=== PATIENT | female | born 1955 ===

== ENCOUNTER 2017-09-10 15:54 | Inpatient (IN) | payer MEDICAID ==
[2017-09-10 15:54] VITALS: BMI 24.5
[2017-09-10] MEDS ORDERED: Nitroglycerin 2% Ointment Foilpak UD TOP STA (16:19)
[2017-09-10] MEDS ORDERED: Alum-Mag Hydrox-Simethicone Susp (30 mL) PO STA (16:22)
[2017-09-10] MEDS ORDERED: Nitroglycerin 2% Ointment Foilpak UD TOP ONE (16:24)
[2017-09-10] MEDS ORDERED: Alum-Mag Hydrox-Simethicone Susp (30 mL) ONE (16:34)
--- NOTE | 2017-09-10 16:39 | ED PDOC ---
HPI: Chest Pain Time Seen by Provider: 09/10/17 16:10 Chief Complaint (Nursing): Chest Pain Chief Complaint (Provider): Chest pain History Per: Patient History/Exam Limitations: no limitations Onset/Duration Of Symptoms: Days (x2), Waxing/Waning Current Symptoms Are (Timing): Still Present Quality: Pressure Additional Complaint(s): 62 year old female, with past medical history of hypertension, thyroid disease, high cholesterol, anxiety, presented to ED with complaints of CP with onset of 2 days. Patient reports SOB, pain worsens when she lies down, intermittent leg swelling, and anxiety. 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 Denies fever, nausea, vomiting, abdominal pain, and back pain. PCP: Sandro Nix Past Medical History Reviewed: Historical Data, Nursing Documentation, Vital Signs Vital Signs: Last Vital Signs Temp 98.5 F 09/11/17 12:17 Pulse 60 09/11/17 12:46 Resp 16 09/11/17 12:17 BP 186/79 H 09/11/17 12:46 Pulse Ox 100 09/11/17 12:17 - Medical History PMH: Anxiety, Arthritis, Depression, Diverticulitis, Gastrointestinal Ulcer, Hiatal Hernia, HTN, Hypercholesterolemia, Hypothyroidism, Migraine Denies: Chronic Kidney Disease - Surgical History Other surgeries: Tubal ligation, bilateral rotator cuff surgery, right breast lumpectomy - Family History Family History: States: Hypertension - Social History Ex-Smoker (has not smoked in the last 12 months): No (Quit 17 years ago) Alcohol: None Drugs: Denies - Immunization History Hx Tetanus Toxoid Vaccination: No Hx Influenza Vaccination: No Hx Pneumococcal Vaccination: No - Home Medications Home Medications: Ambulatory Orders Medication Instructions Recorded Alprazolam [Xanax] 0.5 mg PO TID 12/16/16 Dicyclomine [Bentyl] 20 mg PO DAILY PRN 12/16/16 Metoprolol Tartrate 25 mg PO DAILY 12/16/16 Levothyroxine [Synthroid] 88 mcg PO DAILY 09/10/17 Zolpidem [Ambien] 10 mg PO DAILY 09/10/17 - Allergies Allergies/Adverse Reactions: Allergies Allergy/AdvReac Type Severity Reaction Status Date / Time diphenhydramine Allergy RASH Verified 09/11/17 02:01 [From Benadryl] esomeprazole [From Nexium] Allergy PAIN Verified 09/11/17 02:01 ibuprofen Allergy PAIN Verified 04/21/16 10:18 ketorolac tromethamine Allergy PAIN Verified 04/21/16 10:18 [From Toradol] oxycodone HCl [From Percocet] Allergy PAIN Verified 07/08/16 23:22 VINOD Risk Score for UA/NSTEMI - VINOD Risk Score Age > 64: NO 3 or more CAD Risk Factors: YES Known CAD (Stenosis greater than 50%): NO Aspirin use in past 7 days: NO Severe Angina: NO EKG ST changes greater than 0.5mm: NO Positive Cardiac Marker: NO VINOD Score: 1 Risk %: 5% Review of Systems ROS Statement: Except As Marked, All Systems Reviewed And Found Negative Constitutional: Negative for: Fever Respiratory: Positive for: Shortness of Breath. Negative for: Cough Gastrointestinal: Negative for: Nausea, Vomiting, Abdominal Pain Musculoskeletal: Negative for: Back Pain Physical Exam - Reviewed Nursing Documentation Reviewed: Yes Vital Signs Reviewed: Yes - Physical Exam Appears: Positive for: Non-toxic. Negative for: No Acute Distress (mild painful distress) Skin: Positive for: Warm, Dry Eye Exam: Positive for: EOMI, PERRL ENT: Negative for: Pharyngeal Erythema, Tonsillar Exudate Neck: Positive for: Painless ROM, Supple Cardiovascular/Chest: Positive for: Regular Rate, Rhythm. Negative for: Gallop , Murmur Respiratory: Positive for: Normal Breath Sounds. Negative for: Rales, Rhonchi, Wheezing, Respiratory Distress Gastrointestinal/Abdominal: Positive for: Soft. Negative for: Tenderness Back: Positive for: Vertebral Tenderness (lumbar), Muscle Spasm Extremity: Negative for: Pedal Edema Lymphatic: Negative for: Adenopathy Neurologic/Psych: Positive for: Alert. Negative for: Motor/Sensory Deficits - Laboratory Results Result Diagrams: 09/10/17 16:45 09/11/17 06:18 - ECG ECG: Positive for: Interpreted By Me, Viewed By Me ECG Rhythm: Positive for: Normal QRS, ST/T Changes (diffusely flattened t waves) Rate: 64 O2 Sat by Pulse Oximetry: 99 (RA) Pulse Ox Interpretation: Normal Medical Decision Making Medical Decision Making: Initial Impression: Chest pain, hospitalized for serial troponins secondary to cardiac risk factor, pending ER workup Differentials: anxiety, CHF, PE, costochondritis Initial Plan: Type and Screen Stat ECG CMP Magnesium Phosphorous Thryoid stimulation Troponin I ED urine dipstick CBC D Dimer Prothrombin Time X-Ray Aluminum hydroxide 30ml PO Nitroglycerin 2% 0.5 Top Stat Pepcid 20mg PO Ondansetron 4mg PO Pending ED workup 16:35 X-Ray FINDINGS: LUNGS: No active pulmonary disease. PLEURA: No significant pleural effusion identified. No pneumothorax apparent. CARDIOVASCULAR: No radiographic findings to suggest acute or significant cardiovascular disease. OSSEOUS STRUCTURES: No significant abnormalities. VISUALIZED UPPER ABDOMEN: Normal. OTHER FINDINGS: None. IMPRESSION: No active disease. No significant interval change compared to the prior examination(s). Labs demonstrate electrolyte derangements. Supplementation ordered. FLORA Dunbar and placed in observation. Scribe Attestation: Documented by Eddie Justin acting as a scribe for Fiona Castañeda MD. Provider Scribe Attestation: All medical record entries made by the Scribe were at my direction and personally dictated by me. I have reviewed the chart and agree that the record accurately reflects my personal performance of the history, physical exam, medical decision making, and the department course for this patient. I have also personally directed, reviewed, and agree with the discharge instructions and disposition. Disposition - Clinical Impression Clinical Impression: Chest pain - Disposition Disposition Time: 16:30 Condition: FAIR - Pt Status Changed To: Hospital Disposition Of: Observation - POA Present On Arrival: None
--- NOTE | 2017-09-10 16:58 | RAD ---
HISTORY: Chest pain COMPARISON: 07/08/2016 TECHNIQUE: Chest PA and lateral FINDINGS: LUNGS: No active pulmonary disease. PLEURA: No significant pleural effusion identified. No pneumothorax apparent. CARDIOVASCULAR: No radiographic findings to suggest acute or significant cardiovascular disease. OSSEOUS STRUCTURES: No significant abnormalities. VISUALIZED UPPER ABDOMEN: Normal. OTHER FINDINGS: None. IMPRESSION: No active disease. No significant interval change compared to the prior examination(s).
[2017-09-10 18:04] LABS: B-TYPE NATRIURETIC PEPTIDE 185 pg/ml (0-900)
[2017-09-10 18:04] LABS: BASO % 0.4 % (0.0-2.0); EOS % 0.4 % (0.0-4.0); LYMPH # 1.6 K/uL (1.0-4.3); LYMPH % 20.7 % (20.0-40.0); MEAN CORPUSCULAR HEMOGLOBIN 32.3 pg (27.0-31.0); MEAN CORPUSCULAR HGB CONC 33.3 g/dL (33.0-37.0); MEAN PLATELET VOLUME 7.3 fl (7.2-11.7); MONO # 0.5 K/uL (0.0-0.8); MONO % 6.2 % (0.0-10.0); NEUT # 5.5 K/uL (1.8-7.0); NEUT % 72.3 % (50.0-75.0); NRBC % 0.1 % (0.0-0.0); RBC 4.03 Mil/uL (3.80-5.20); RED CELL DISTRIBUTION WIDTH 14.4 % (11.5-14.5); WHITE BLOOD COUNT 7.7 K/uL (4.8-10.8)
[2017-09-10 18:10] LABS: ALB/GLOB RATIO 1.1 (1.0-2.1); ALBUMIN 4.7 g/dL (3.5-5.0); ALT/SGPT 34 U/L (9-52); AST/SGOT 23 U/L (14-36); BLOOD UREA NITROGEN 5 mg/dl (7-17); CALCIUM 9.7 mg/dL (8.4-10.2); GFR AFRICAN-AMERICAN > 60; GFR NON-AFRICAN AMERICAN > 60
[2017-09-10] MEDS ORDERED: Potassium & Sodium Phosphate PO STA (18:13)
[2017-09-10 18:16] LABS: INR 1.1 (0.9-1.2); PROTHROMBIN TIME 11.8 Seconds (9.8-13.1)
[2017-09-10 18:17] LABS: PARTIAL THROMBOPLASTIN TIME 28.1 Seconds (25.6-37.1)
[2017-09-11] MEDS ORDERED: Phenylephrine 0.5% Nasal Spray NAS ONE (01:39)
[2017-09-11 06:28] LABS: ALB/GLOB RATIO 1.1 (1.0-2.1); ALBUMIN 4.6 g/dL (3.5-5.0); ALT/SGPT 31 U/L (9-52); AST/SGOT 27 U/L (14-36); BLOOD UREA NITROGEN 5 mg/dl (7-17); CALCIUM 9.5 mg/dL (8.4-10.2); GFR AFRICAN-AMERICAN > 60; GFR NON-AFRICAN AMERICAN > 60
[2017-09-11] MEDS ORDERED: Levothyroxine 88 MCG TAB PO SCH ×2 (06:30→07:45)
[2017-09-11] MEDS: Enoxaparin 40 mg Syringe SC SCH (09:26)
[2017-09-11] MEDS: Levothyroxine 100 MCG TAB PO SCH (09:28)
--- NOTE | 2017-09-11 10:32 | CP.PCM.CON ---
History of Present Illness - History of Present Illness History of Present Illness: Psychiatry consult note CC: "I had chest pain." HPI: 62 yo female w/ h/o MISSY, HTN, Hypothryoid, HLD, presented to the ED w/ chest pain, now on telemetry unit. Patient reports that she has a history of depression and anxiety, but denies acutely feeling depressed or anxious. She denies AH/VH/SI/HI/paranoia/delusions/deyanira. She reports that she is compliant with outpatient treatment and states that Xanax is helpful for her anxiety. 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 No h/o psychiatric hospitalizations or suicide attempt. FHx: Son w/ h/o depression and suicide attempt ALL: Benadryl, Esomeprazol, Ibuprofen, Oxycodone, Ketorlolac SHx: Lives w/ , unemployed, denies current drug/etoh/cig use MSE: A + O x 3, calm, cooperative, no acute distress, speech normal, good eye contact, mood/affect- neutral, no AH/VH/SI/HI, good I/J Impression: 62 yo female w/ history of anxiety, denies acute psychiatric symptoms. Recommendations: -Continue w/ current psychiatric medication w/ continued outpatient follow-up with Charles Hernandez -No inpatient psychiatric admission indicated at this time Past Patient History - Infectious Disease Hx of Infectious Diseases: None - Past Medical History & Family History Past Medical History?: Yes - Past Social History Smoking Status: Never Smoked - CARDIAC Hx Cardiac Disorders: Yes Hx Hypercholesterolemia: Yes Hx Hypertension: Yes - PULMONARY Hx Respiratory Disorders: No - NEUROLOGICAL Hx Neurological Disorder: Yes Hx Migraine: Yes - HEENT Hx HEENT Problems: No - RENAL Hx Chronic Kidney Disease: No - ENDOCRINE/METABOLIC Hx Endocrine Disorders: Yes Hx Hypothyroidism: Yes - HEMATOLOGICAL/ONCOLOGICAL Hx Blood Disorders: No Hx AIDS: No Hx Human Immunodeficiency Virus (HIV): No - INTEGUMENTARY Hx Dermatological Problems: No - MUSCULOSKELETAL/RHEUMATOLOGICAL Hx Musculoskeletal Disorders: Yes Hx Arthritis: Yes Hx Falls: No - GASTROINTESTINAL Hx Gastrointestinal Disorders: Yes Hx Diverticulitis: Yes Hx Ulcer: Yes - GENITOURINARY/GYNECOLOGICAL Hx Genitourinary Disorders: No - PSYCHIATRIC Hx Psychophysiologic Disorder: Yes Hx Anxiety: Yes Hx Substance Use: No - SURGICAL HISTORY Hx Surgeries: Yes Hx Tubal Ligation: Yes Other/Comment: Right breast cyst removed. right shoulder - ANESTHESIA Hx Anesthesia: Yes Hx Anesthesia Reactions: No Hx Malignant Hyperthermia: No Meds Allergies/Adverse Reactions: Allergies Allergy/AdvReac Type Severity Reaction Status Date / Time diphenhydramine Allergy RASH Verified 09/11/17 02:01 [From Benadryl] esomeprazole [From Nexium] Allergy PAIN Verified 09/11/17 02:01 ibuprofen Allergy PAIN Verified 04/21/16 10:18 ketorolac tromethamine Allergy PAIN Verified 04/21/16 10:18 [From Toradol] oxycodone HCl [From Percocet] Allergy PAIN Verified 07/08/16 23:22 - Medications Medications: Current Medications Acetaminophen (Tylenol 325mg Tab) 650 mg PO Q4 PRN PRN Reason: Headache Alprazolam (Xanax) 0.5 mg PO TID PRN PRN Reason: Anxiety Last Admin: 09/11/17 06:45 Dose: 0.5 mg Dicyclomine HCl (Bentyl) 20 mg PO DAILY PRN PRN Reason: Pain, moderate (4-7) Enoxaparin Sodium (Lovenox) 40 mg SC DAILY [facility] PRN Reason: Protocol Last Admin: 09/11/17 09:26 Dose: Not Given Levothyroxine Sodium (Synthroid) 100 mcg PO DAILY@0630 [facility] Last Admin: 09/11/17 09:28 Dose: 100 mcg Metoprolol Tartrate (Lopressor) 25 mg PO DAILY [facility] Last Admin: 09/11/17 09:20 Dose: 25 mg Zolpidem Tartrate (Ambien) 5 mg PO HS PRN PRN Reason: Insomnia Last Admin: 09/10/17 23:48 Dose: 5 mg Zolpidem Tartrate (Ambien) 10 mg PO HS [facility] Results - Vital Signs Recent Vital Signs: Last Vital Signs Temp 98.2 F 09/11/17 08:12 Pulse 60 09/11/17 09:20 Resp 16 09/11/17 08:12 BP 155/83 H 09/11/17 09:20 Pulse Ox 100 09/11/17 08:12 - Labs Result Diagrams: 09/10/17 16:45 09/11/17 06:18 Labs: Laboratory Results - last 24 hr 09/10/17 09/10/17 09/10/17 16:45 16:45 16:45 WBC 7.7 RBC 4.03 Hgb 13.0 Hct 39.1 MCV 97.0 MCH 32.3 H MCHC 33.3 RDW 14.4 Plt Count 313 MPV 7.3 Neut % (Auto) 72.3 Lymph % (Auto) 20.7 [place] % (Auto) 6.2 Eos % (Auto) 0.4 Baso % (Auto) 0.4 Neut # (Auto) 5.5 Lymph # (Auto) 1.6 [place] # (Auto) 0.5 Eos # (Auto) 0.0 Baso # (Auto) 0.0 PT 11.8 INR 1.1 APTT 28.1 D-Dimer, Quantitative 91 Sodium Potassium Chloride Carbon Dioxide Anion Gap BUN Creatinine Est GFR ( Amer) Est GFR (Non-Af Amer) Random Glucose Calcium Phosphorus Magnesium Total Bilirubin AST ALT Alkaline Phosphatase Troponin I NT-Pro-B Natriuret Pep Total Protein Albumin Globulin Albumin/Globulin Ratio Vitamin B12 TSH 3rd Generation Blood Type A POSITIVE Antibody Screen Negative BBK History Checked Patient has bt 09/10/17 09/11/17 09/11/17 17:30 01:15 06:18 WBC RBC Hgb Hct MCV MCH MCHC RDW Plt Count MPV Neut % (Auto) Lymph % (Auto) [place] % (Auto) Eos % (Auto) Baso % (Auto) Neut # (Auto) Lymph # (Auto) [place] # (Auto) Eos # (Auto) Baso # (Auto) PT INR APTT D-Dimer, Quantitative Sodium 147 146 Potassium 3.3 L 3.2 L Chloride 108 H 107 Carbon Dioxide 20 L 21 L Anion Gap 22 H 21 H BUN 5 L 5 L Creatinine 0.7 0.8 Est GFR ( Amer) > 60 > 60 Est GFR (Non-Af Amer) > 60 > 60 Random Glucose 110 H 99 Calcium 9.7 9.5 Phosphorus 0.7 L* Magnesium 2.4 H Total Bilirubin 0.4 0.4 AST 23 27 ALT 34 31 Alkaline Phosphatase 147 H 152 H Troponin I < 0.0120 < 0.0120 NT-Pro-B Natriuret Pep 185 Total Protein 8.9 H 8.6 H Albumin 4.7 4.6 Globulin 4.2 H 4.0 H Albumin/Globulin Ratio 1.1 1.1 Vitamin B12 TSH 3rd Generation 22.50 H Blood Type Antibody Screen BBK History Checked 09/11/17 09/11/17 08:10 08:10 WBC RBC Hgb Hct MCV MCH MCHC RDW Plt Count MPV Neut % (Auto) Lymph % (Auto) [place] % (Auto) Eos % (Auto) Baso % (Auto) Neut # (Auto) Lymph # (Auto) [place] # (Auto) Eos # (Auto) Baso # (Auto) PT INR APTT D-Dimer, Quantitative Sodium Potassium Chloride Carbon Dioxide Anion Gap BUN Creatinine Est GFR ( Amer) Est GFR (Non-Af Amer) Random Glucose Calcium Phosphorus 2.8 Magnesium Total Bilirubin AST ALT Alkaline Phosphatase Troponin I < 0.0120 NT-Pro-B Natriuret Pep Total Protein Albumin Globulin Albumin/Globulin Ratio Vitamin B12 557 TSH 3rd Generation Blood Type Antibody Screen BBK History Checked
[2017-09-11] MEDS: NIFEdipine 30 mg ER Tab PO SCH (12:46)
--- NOTE | 2017-09-11 13:07 | CARD ---
APPROVED REPORT EKG Measurement Heart [id number] <Conclusion> Normal sinus rhythm Nonspecific ST and T wave abnormality Abnormal ECG
[2017-09-11] MEDS ORDERED: Potassium & Sodium Phosphate PO ONE (20:15)
[2017-09-11] MEDS ORDERED: NIFEdipine 30 mg ER Tab PO ONE (20:41)
[2017-09-11] MEDS ORDERED: Apap-Butalbital-Caffeine 325-50-40mg Tab PO SCH (21:00)
[2017-09-12] MEDS ORDERED: Potassium & Sodium Phosphate PO ONE (00:01)
[2017-09-12] MEDS ORDERED: Phenylephrine 0.5% Nasal Spray NAS ONE (04:51)
[2017-09-12] MEDS: Levothyroxine 100 MCG TAB PO SCH (06:08)
[2017-09-12] MEDS: Enoxaparin 40 mg Syringe SC SCH (08:26)
[2017-09-12] MEDS: Apap-Butalbital-Caffeine 325-50-40mg Tab PO SCH (08:27)
[2017-09-12] MEDS: NIFEdipine 30 mg ER Tab PO SCH (10:00)
--- NOTE | 2017-09-12 10:26 | PN ---
DATE: 09/12/2017 SUBJECTIVE: The patient is seen and examined. Interim events noted. Cardiology consult is , psychiatric consult and intervention noted and appreciated. The patient feels much better. No chest pain. PHYSICAL EXAMINATION: GENERAL: The patient is in no acute distress. VITAL SIGNS: Stable. HEART: S1 and S2, normal and regular. LUNGS: Good bilateral air exchange. ABDOMEN: Soft and nontender. EXTREMITIES: No edema. No calf swelling. No tenderness. No acute ischemia. CENTRAL NERVOUS SYSTEM: Exam is essentially unchanged. DIAGNOSTIC DATA: Available diagnostic data reviewed. Telemetry monitoring does not reveal any significant arrhythmia. PLAN: Overall, the patient's general medical condition is stable. Plan as ordered. Narinder Dunbar MD
[2017-09-12 12:29] LABS: HEMOGLOBIN 13.3 g/dL (12.0-16.0); MEAN CELL VOLUME 97.7 fl (81.0-99.0); MEAN CORPUSCULAR HEMOGLOBIN 32.6 pg (27.0-31.0); MEAN CORPUSCULAR HGB CONC 33.4 g/dL (33.0-37.0); RBC 4.07 Mil/uL (3.80-5.20); RED CELL DISTRIBUTION WIDTH 14.5 % (11.5-14.5); WHITE BLOOD COUNT 6.9 K/uL (4.8-10.8)
[2017-09-12 12:37] LABS: ALB/GLOB RATIO 1.1 (1.0-2.1); ALBUMIN 4.5 g/dL (3.5-5.0); ALT/SGPT 33 U/L (9-52); AST/SGOT 25 U/L (14-36); BLOOD UREA NITROGEN 11 mg/dl (7-17); CALCIUM 9.4 mg/dL (8.4-10.2); GFR AFRICAN-AMERICAN > 60; GFR NON-AFRICAN AMERICAN > 60
[2017-09-12] MEDS ORDERED: Apap-Butalbital-Caffeine 325-50-40mg Tab PO PRN (12:48)
--- NOTE | 2017-09-12 13:30 | CP.PCM.CON ---
History of Present Illness - History of Present Illness History of Present Illness: Consultation for evaluation of chest pain HPI: 62-year-old female with past medical history significant for hypertension hypothyroidism dyslipidemia anxiety who presented with complains of chest pain described as pressure-like substernal 8 out of 10 associated with activity ongoing for 2 days prior to presentation symptoms were associated with shortness of breath somewhat positional with associated with intermittent leg swelling and anxiety on prior to arrival her blood pressure was somewhat uncontrolled for which she took an extra dose of her home blood pressure medications. He had similar presentation about 3 weeks ago 3 years ago at which time she had been seen at [facility] according to the patient had undergone a nuclear stress test and a cardiac catheterization with and was told she has normal coronaries. Review of Systems - Review of Systems Systems not reviewed;Unavailable: Acuity of Condition - Constitutional Constitutional: As Per HPI - EENT Eyes: As Per HPI Ears: As Per HPI Nose/Mouth/Throat: As Per HPI - Breasts Breasts: As Per HPI - Cardiovascular Cardiovascular: As Per HPI - Respiratory Respiratory: As Per HPI - Gastrointestinal Gastrointestinal: As Per HPI - Genitourinary Genitourinary: As Per HPI - Reproductive: Female Reproductive:Female: As Per HPI - Menstruation Menstruation: As Per HPI - Musculoskeletal Musculoskeletal: As Per HPI - Integumentary Integumentary: As Per HPI - Neurological Neurological: As Per HPI - Psychiatric Psychiatric: As Per HPI - Endocrine Endocrine: As Per HPI - Hematologic/Lymphatic Hematologic: As Per HPI Past Patient History - Infectious Disease Hx of Infectious Diseases: None - Past Medical History & Family History Past Medical History?: Yes - Past Social History Alcohol: None Drugs: Denies - CARDIAC Hx Hypercholesterolemia: Yes Hx Hypertension: Yes - PULMONARY Hx Respiratory Disorders: No - NEUROLOGICAL Hx Migraine: Yes - HEENT Hx HEENT Problems: No - RENAL Hx Chronic Kidney Disease: No - ENDOCRINE/METABOLIC Hx Hypothyroidism: Yes - HEMATOLOGICAL/ONCOLOGICAL Hx Blood Disorders: No Hx AIDS: No Hx Human Immunodeficiency Virus (HIV): No - INTEGUMENTARY Hx Dermatological Problems: No - MUSCULOSKELETAL/RHEUMATOLOGICAL Hx Arthritis: Yes - GASTROINTESTINAL Hx Diverticulitis: Yes - GENITOURINARY/GYNECOLOGICAL Hx Genitourinary Disorders: No - PSYCHIATRIC Hx Anxiety: Yes Hx Depression: Yes - SURGICAL HISTORY Hx Surgeries: Yes Hx Tubal Ligation: Yes Other/Comment: Right breast cyst removed. right shoulder - ANESTHESIA Hx Anesthesia: Yes Hx Anesthesia Reactions: No Hx Malignant Hyperthermia: No Meds Allergies/Adverse Reactions: Allergies Allergy/AdvReac Type Severity Reaction Status Date / Time diphenhydramine Allergy RASH Verified 09/11/17 02:01 [From Benadryl] esomeprazole [From Nexium] Allergy PAIN Verified 09/11/17 02:01 ibuprofen Allergy PAIN Verified 04/21/16 10:18 ketorolac tromethamine Allergy PAIN Verified 04/21/16 10:18 [From Toradol] oxycodone HCl [From Percocet] Allergy PAIN Verified 07/08/16 23:22 - Medications Medications: Current Medications Acetaminophen (Tylenol 325mg Tab) 650 mg PO Q4 PRN PRN Reason: Headache Last Admin: 09/12/17 05:15 Dose: 650 mg Acetaminophen/Butalbital/Caffeine (Fioricet) 1 tab PO DAILY [facility] Last Admin: 09/12/17 08:27 Dose: 1 tab Acetaminophen/Butalbital/Caffeine (Fioricet) 2 tab PO Q4 PRN PRN Reason: Headache Alprazolam (Xanax) 0.5 mg PO TID PRN PRN Reason: Anxiety Last Admin: 09/11/17 12:23 Dose: 0.5 mg Dicyclomine HCl (Bentyl) 20 mg PO DAILY PRN PRN Reason: Pain, moderate (4-7) Enoxaparin Sodium (Lovenox) 40 mg SC DAILY [facility] PRN Reason: Protocol Last Admin: 09/12/17 08:26 Dose: 40 mg Fluticasone Propionate (Flonase) 2 spr ADILSON DAILY [facility] Last Admin: 09/12/17 09:30 Dose: 2 spr Levothyroxine Sodium (Synthroid) 100 mcg PO DAILY@0630 [facility] Last Admin: 09/12/17 06:08 Dose: 100 mcg Metoprolol Tartrate (Lopressor) 25 mg PO DAILY [facility] Last Admin: 09/12/17 08:27 Dose: 25 mg Nifedipine (Procardia Xl) 30 mg PO DAILY [facility] Last Admin: 09/12/17 10:00 Dose: 30 mg Zolpidem Tartrate (Ambien) 5 mg PO HS PRN PRN Reason: Insomnia Last Admin: 09/10/17 23:48 Dose: 5 mg Zolpidem Tartrate (Ambien) 10 mg PO HS [facility] Last Admin: 09/11/17 23:35 Dose: 10 mg Physical Exam - Constitutional Appears: Well - Head Exam Head Exam: ATRAUMATIC, NORMAL INSPECTION, NORMOCEPHALIC - Eye Exam Eye Exam: EOMI, Normal appearance, PERRL Pupil Exam: NORMAL ACCOMODATION, PERRL - ENT Exam ENT Exam: Mucous Membranes Moist, Normal Exam - Neck Exam Neck exam: Positive for: Normal Inspection - Respiratory Exam Respiratory Exam: Clear to Auscultation Bilateral, NORMAL BREATHING PATTERN - Cardiovascular Exam Cardiovascular Exam: REGULAR RHYTHM - GI/Abdominal Exam GI & Abdominal Exam: Normal Bowel Sounds, Soft. absent: Tenderness - Extremities Exam Extremities exam: Positive for: normal inspection - Back Exam Back exam: NORMAL INSPECTION - Neurological Exam Neurological exam: Alert, CN II-XII Intact, Normal Gait, Oriented x3, Reflexes Normal - Psychiatric Exam Psychiatric exam: Normal Affect, Normal Mood - Skin Skin Exam: Dry, Intact, Normal Color, Warm Results - Vital Signs Recent Vital Signs: Last Vital Signs Temp 98.2 F 09/12/17 12:23 Pulse 63 09/12/17 12:23 Resp 16 09/12/17 12:23 BP 129/78 09/12/17 12:23 Pulse Ox 98 09/12/17 12:23 - Labs Result Diagrams: 09/12/17 11:57 09/12/17 11:57 Labs: Laboratory Results - last 24 hr 09/12/17 09/12/17 11:57 11:57 WBC 6.9 RBC 4.07 Hgb 13.3 Hct 39.8 MCV 97.7 MCH 32.6 H MCHC 33.4 RDW 14.5 Plt Count 315 Sodium 144 Potassium 4.1 Chloride 104 Carbon Dioxide 23 Anion Gap 21 H BUN 11 Creatinine 0.7 Est GFR ( Amer) > 60 Est GFR (Non-Af Amer) > 60 Random Glucose 92 Calcium 9.4 Total Bilirubin 0.5 AST 25 ALT 33 Alkaline Phosphatase 146 H Total Protein 8.5 H Albumin 4.5 Globulin 4.0 H Albumin/Globulin Ratio 1.1 Assessment & Plan (1) Chest pain Assessment and Plan: ACS ruled out with serial enzymes x 3 plan for nuclear stress test in am npo p mn cont asa, bb, statins echo telemetry Status: Acute (2) Anxiety Status: Acute (3) HTN (hypertension) Assessment and Plan: cont nifedipine and metoprolol Status: Chronic
[2017-09-12 14:20] LABS: HDL CHOLESTEROL 63 MG/DL (30-70)
[2017-09-12 14:31] LABS: LDL CHOLESTEROL 134 mg/dL (0-129)
[2017-09-12] MEDS ORDERED: NIFEdipine 30 mg ER Tab PO ONE (20:21)
[2017-09-13] MEDS: Levothyroxine 100 MCG TAB PO SCH (06:38)
[2017-09-13 09:00] LABS: HEMOGLOBIN 14.3 g/dL (12.0-16.0); MEAN CORPUSCULAR HEMOGLOBIN 33.1 pg (27.0-31.0); MEAN CORPUSCULAR HGB CONC 34.1 g/dL (33.0-37.0); RBC 4.32 Mil/uL (3.80-5.20); RED CELL DISTRIBUTION WIDTH 14.3 % (11.5-14.5); WHITE BLOOD COUNT 6.3 K/uL (4.8-10.8)
[2017-09-13 09:12] LABS: ALB/GLOB RATIO 1.1 (1.0-2.1); ALBUMIN 4.6 g/dL (3.5-5.0); ALT/SGPT 39 U/L (9-52); AST/SGOT 27 U/L (14-36); BLOOD UREA NITROGEN 10 mg/dl (7-17); CALCIUM 9.6 mg/dL (8.4-10.2); GFR AFRICAN-AMERICAN > 60; GFR NON-AFRICAN AMERICAN > 60
--- NOTE | 2017-09-13 09:19 | HP ---
CHIEF COMPLAINT: Chest pain. HISTORY OF PRESENT ILLNESS: This is a 62-year-old female known case of hypertension, elevated cholesterol, hypothyroidism, migraine, hiatal hernia, dyspepsia, diverticulosis, depression, arthritis, and anxiety with underlying chest pain, so the patient was brought to the emergency room and was admitted for further management. REVIEW OF SYSTEMS: Positive for pressure like chest pain without any radiation. Review of systems otherwise is negative for headache, dizziness, syncope, loss of consciousness, nausea, vomiting, diarrhea, constipation or any new joint or extremity pain. Review of systems of all other organ system is unremarkable. PAST MEDICAL HISTORY: Significant for hypertension, hypothyroidism, hypercholesterolemia, migraine, hiatal hernia, dyspepsia, diverticulosis, anxiety, depression, and arthritis. PAST SURGICAL HISTORY: Remarkable for rotator cuff surgery and lumpectomy from right breast and tubal ligation. PERSONAL HISTORY: The patient is currently nonsmoker, nondrinker. No substance use or abuse. The patient used to smoke in the past, but quit about 17 years ago. The patient also denies any alcohol or substance abuse. MEDICATIONS: The patient is on tramadol, metoprolol, Bentyl, and Xanax. ALLERGIES: THE PATIENT IS ALLERGIC TO MULTIPLE MEDICATIONS INCLUDING PERCOCET, TORADOL, NEXIUM, AND IBUPROFEN. FAMILY HISTORY: Noncontributory. PHYSICAL EXAMINATION: GENERAL: A well-built, well-nourished, short stature 62-year-old female, ambulatory, in no acute distress. VITAL SIGNS: Temperature 98.5, pulse 53, respirations 18, and blood pressure . HEENT: The patient is wearing glasses. No JVD. No thyromegaly. No lymphadenopathy. No nystagmus. Normocephalic and atraumatic skull. HEART: S1 and S2, normal and regular. No significant murmur, gallop or rub is heard. LUNGS: Shows good bilateral air exchange. No rales or rhonchi. ABDOMEN: Soft and nontender. No organomegaly. No fluid. Bowel sounds are present and normal. EXTREMITIES: No edema. No calf swelling. No tenderness. No acute ischemia. No edema. CENTRAL NERVOUS SYSTEM: Essentially unchanged. There is no sign of any acute gross, focal, motor or sensory neurological deficits. DIAGNOSTIC DATA: Available diagnostic data reviewed. Telemetry monitoring does not reveal significant arrhythmia. WBC 7.7, hemoglobin 13, hematocrit 39.1, and platelets 313,000. PT and PTT is unremarkable. Sodium 147, potassium 3.3, chloride , bicarbonate 20, BUN 5, and creatinine 0.7. SMA-12 is unremarkable. Phosphorus level is 0.7. TSH is 32. EKG does not reveal any acute ST-T changes. Chest x-ray is clear. ADMITTING IMPRESSION: Chest pain rule out acute coronary syndrome, hypertension uncontrolled, hypothyroidism uncontrolled, hypokalemia and electrolyte imbalance, history of migraine, anxiety, depression, arthritis, and diverticulosis. PLAN: As ordered. Case and plan discussed with the patient in detail. Narinder Dunbar MD
--- NOTE | 2017-09-13 10:40 | CP.PCM.PN ---
Subjective - Date & Time of Evaluation Date of Evaluation: 09/13/17 Time of Evaluation: 10:39 - Subjective Subjective: stress test normal no more CP Objective - Vital Signs/Intake and Output Vital Signs (last 24 hours): Temp Pulse Resp BP Pulse Ox 98.1 F 63 18 155/83 H 100 09/13/17 09:00 09/13/17 09:00 09/13/17 09:00 09/13/17 09:00 09/13/17 09:00 - Medications Medications: Current Medications Acetaminophen (Tylenol 325mg Tab) 650 mg PO Q4 PRN PRN Reason: Headache Last Admin: 09/12/17 05:15 Dose: 650 mg Acetaminophen/Butalbital/Caffeine (Fioricet) 1 tab PO DAILY [facility] Last Admin: 09/12/17 08:27 Dose: 1 tab Acetaminophen/Butalbital/Caffeine (Fioricet) 2 tab PO Q4 PRN PRN Reason: Headache Last Admin: 09/12/17 13:47 Dose: 2 tab Alprazolam (Xanax) 0.5 mg PO TID PRN PRN Reason: Anxiety Last Admin: 09/13/17 08:26 Dose: 0.5 mg Dicyclomine HCl (Bentyl) 20 mg PO DAILY PRN PRN Reason: Pain, moderate (4-7) Enoxaparin Sodium (Lovenox) 40 mg SC DAILY [facility] PRN Reason: Protocol Last Admin: 09/12/17 08:26 Dose: 40 mg Fluticasone Propionate (Flonase) 2 spr ADILSON DAILY [facility] Last Admin: 09/13/17 09:05 Dose: 2 spr Levothyroxine Sodium (Synthroid) 100 mcg PO DAILY@0630 [facility] Last Admin: 09/13/17 06:38 Dose: Not Given Metoprolol Tartrate (Lopressor) 25 mg PO DAILY [facility] Last Admin: 09/12/17 08:27 Dose: 25 mg Nifedipine (Procardia Xl) 30 mg PO DAILY [facility] Last Admin: 09/12/17 10:00 Dose: 30 mg Zolpidem Tartrate (Ambien) 10 mg PO HS [facility] Last Admin: 09/12/17 22:33 Dose: 10 mg - Labs Labs: 09/13/17 08:35 09/13/17 08:35 PT 11.8 Seconds (9.8-13.1) 09/10/17 16:45 INR 1.1 (0.9-1.2) 09/10/17 16:45 APTT 28.1 Seconds (25.6-37.1) 09/10/17 16:45 - Constitutional Appears: Well - Head Exam Head Exam: ATRAUMATIC, NORMAL INSPECTION, NORMOCEPHALIC - Eye Exam Eye Exam: EOMI, Normal appearance, PERRL Pupil Exam: NORMAL ACCOMODATION, PERRL - ENT Exam ENT Exam: Mucous Membranes Moist, Normal Exam - Neck Exam Neck Exam: Full ROM, Normal Inspection. absent: Lymphadenopathy - Respiratory Exam Respiratory Exam: Clear to Ausculation Bilateral, NORMAL BREATHING PATTERN - Cardiovascular Exam Cardiovascular Exam: REGULAR RHYTHM, +S1, +S2. absent: Murmur - GI/Abdominal Exam GI & Abdominal Exam: Soft, Normal Bowel Sounds. absent: Tenderness - Extremities Exam Extremities Exam: Full ROM, Normal Capillary Refill, Normal Inspection. absent : Joint Swelling, Pedal Edema - Back Exam Back Exam: NORMAL INSPECTION - Neurological Exam Neurological Exam: Alert, Awake, CN II-XII Intact, Normal Gait, Oriented x3 - Psychiatric Exam Psychiatric exam: Normal Affect, Normal Mood - Skin Skin Exam: Dry, Intact, Normal Color, Warm Assessment and Plan (1) Chest pain Assessment & Plan: echo and stress test showed no evidence of ischemia stable to dc home GI evaluation / consider PPI Status: Acute (2) Anxiety Status: Acute (3) HTN (hypertension) Assessment & Plan: cont bb and ccb add arb/hctz Status: Chronic (4) Dyslipidemia Assessment & Plan: ASCVD risk is 8.7% based on ACC guidelines would recommend lipitor 20mg po qhs on discharge Status: Acute
[2017-09-13] MEDS ORDERED: Aminophylline 25 mg/ml Inj ONE (10:48)
--- NOTE | 2017-09-13 12:50 | PQF GENQUE ---
This form is a permanent part of the medical record 09/13/17 Dr. Dunbar, AFTER WORK-UP please clarify the etiology of the chest pain if known. Patient with a history of dyslipidemia, HTN and anxiety presents with chest pain. EKG: NSR, nonspecific ST and T wave abnormality. Troponin x 3 negative. Awaiting Echo and nuclear stress test. Treated with Lopressor. H&P: Chest pain R/O ACS Cardiology: Chest pain, ACS ruled out. Clarification of your documentation is requested to better reflect the severity of illness and intensity of treatment of your patient. Indicators present PHYSICIAN'S RESPONSE Based on your medical judgment of the clinical indicators outlined above please clarify the following: [] Practitioner response [] If unable to determine, please check the box, sign and date. Present On Admission (POA) Indicator: [] Present at the time of admission [] Not present at the time of admission [] Clinically Undetermined In responding to this query, please exercise your independent professional judgment. The fact that a question is asked does not imply that any particular answer is desired or expected. Thank you for your clarification on this documentation. If you have any questions please call:ext [phone] * Thank you, Marielena Clark RN CDMP MTDD
[2017-09-13] MEDS: NIFEdipine 30 mg ER Tab PO SCH (13:07)
[2017-09-13] MEDS: Enoxaparin 40 mg Syringe SC SCH ×2 (13:07→13:10)
[2017-09-13] MEDS: Apap-Butalbital-Caffeine 325-50-40mg Tab PO SCH (13:10)
--- NOTE | 2017-09-13 14:56 | CARD ---
APPROVED REPORT Protocol: LEXISCAN Test Type: Stress Nuclear Medications: Tylenol 3235mg, Fioricet 1 tab, Xanax 0.5mg, Bentyl 20mg, Lovenox 40mg, Flonase, Synthroid 100mcg, Lopressor 25mg, Procardia XL 30mg, Ambien 5mg, Medical History: Hypertension, Hypothyroidism, dyslipidemia, anxiiety, Cardiac Cath. Family hx, Migraine, Diverticulitis, Depression, Right breast cyst removed, Target HR: 158 bpm Resting ECG: normal Resting Heart Rate: 73 bpm Resting Blood Pressure: 162/75mmHg submaximum (85%): 134 bpm TEST SUMMARY PREINJECTPRE-[id number]. [id number]. INJECTIONNS FLUSH00:[id number]/90.1. INJECTIONNUC MED00:[id number]/99.1. [id number]/94.0. PROCEDURE Pharmacologic stress testing was performed using 0.4mg per 5ml of regadenoson given intravenously over 7-10 seconds. POST EXERCISE Reason for Termination: completed the test Target HR: No Max HR: 92 bpm 73% of Maximum Predicted HR: 158 bpm Exercise duration: 00:41 min:sec, 0 Stage Exercise capacity: 1.0METs Max Blood Pressure: 172/93mmHg Blood Pressure response to exercise: pharmacological Heart Rate response to exercise: pharmacological Chest Pain: No, none Angina index: 0 Arrhythmia: No, none ST Change: No, none Deviation: 0 mm Clinical Indications Under Appropriate Use Criteria chest pain Stress EKG Interpretation Normal pharmacological portion of the stress test. EXAM: Myocardial Perfusion REST/STRESS Imaging Protocol The imaging protocol used to acquire images was Rest Tc-99m/stress Tc-99m 1 day Rest Spect myocardial perfusion imaging was performed in supine position 40 minutes following the injection of 10 mCi of Tc-99 Myoview. Time of rest injection: 09:20 Time of rest imagin:00 At peak stress, the patient was injected intravenously with 30mCi of Tc-99 tetrofosmin after an infusion time of minutes and seconds. Time of stress injection: 11:10 Time of stress imagin:50 Gated RestStress Spect was performed 40 minutes after intravenous Tc-99 Myoview injection. The images were gated to evaluate regional wall motion and calculate ventricular ejection fraction. NUCLEAR IMAGE INTERPRETATION The rest and stress images show normal perfusion, normal contraction and thickening. LV Perfusion The perfusion of the left ventricle was normal on the standard three tomographic images. Wall Motion normal LVEF of 80% CONCLUSION 1. The patient is a 62 year old female who was referred for a pharmacological stress test due to chest pain. She also has a history of hypertension, hyperlipidemia and anxiety. Her medicines include lovenox, metoprolol and nifedipine. The resting EKG shows sinus rhythm and non-specific ST-T changes. The patient was hooked-up to a continuous concessionist and lexiscan at a dose of 0.4 mg/5ml was injected intravenously. The patient tolerated the lexiscan well without any chest pain or significant EKG changes. The vital signs were stable and there weren't any side effects from the lexiscan. The nuclear scans showed normal perfusion of the left ventricle. The LVEF on the gated study was 80%. 2. Impression: Negative pharmacological stress test for ischemia. LVEF of 80%. Recommendation medical treatment
[2017-09-14] MEDS: Levothyroxine 100 MCG TAB PO SCH (06:05)
[2017-09-14 07:53] VITALS: RESP 20; O2SAT 99
[2017-09-14] MEDS: Apap-Butalbital-Caffeine 325-50-40mg Tab PO SCH (08:35)
[2017-09-14] MEDS: NIFEdipine 30 mg ER Tab PO SCH (08:38)
[2017-09-14] MEDS: Enoxaparin 40 mg Syringe SC SCH (08:39)
--- NOTE | 2017-09-14 10:03 | CP.PCM.DIS ---
Provider - Provider Date of Admission: 09/11/17 12:35 Attending physician: Narinder Dunbar MD Consults: instrument assembler Dr Deleon Time Spent in preparation of Discharge (in minutes): 20 Diagnosis - Discharge Diagnosis (1) Chest pain Status: Acute Comment: - secondary to anxiety (2) Anxiety Status: Chronic (3) Hypothyroidism Status: Chronic Comment: -TSH 22.5. - patient on levothyroxine 100 mcg daily . Hospital Course - Lab Results Lab Results: Most Recent Lab Values WBC 6.3 K/uL (4.8-10.8) 09/13/17 08:35 RBC 4.32 Mil/uL (3.80-5.20) 09/13/17 08:35 Hgb 14.3 g/dL (12.0-16.0) 09/13/17 08:35 Hct 41.9 % (34.0-47.0) 09/13/17 08:35 MCV 97.0 fl (81.0-99.0) 09/13/17 08:35 MCH 33.1 pg (27.0-31.0) H 09/13/17 08:35 MCHC 34.1 g/dL (33.0-37.0) 09/13/17 08:35 RDW 14.3 % (11.5-14.5) 09/13/17 08:35 Plt Count 319 K/uL (130-400) 09/13/17 08:35 MPV 7.3 fl (7.2-11.7) 09/10/17 16:45 Neut % (Auto) 72.3 % (50.0-75.0) 09/10/17 16:45 Lymph % (Auto) 20.7 % (20.0-40.0) 09/10/17 16:45 Rich % (Auto) 6.2 % (0.0-10.0) 09/10/17 16:45 Eos % (Auto) 0.4 % (0.0-4.0) 09/10/17 16:45 Baso % (Auto) 0.4 % (0.0-2.0) 09/10/17 16:45 Neut # (Auto) 5.5 K/uL (1.8-7.0) 09/10/17 16:45 Lymph # (Auto) 1.6 K/uL (1.0-4.3) 09/10/17 16:45 Rich # (Auto) 0.5 K/uL (0.0-0.8) 09/10/17 16:45 Eos # (Auto) 0.0 K/uL (0.0-0.7) 09/10/17 16:45 Baso # (Auto) 0.0 K/uL (0.0-0.2) 09/10/17 16:45 PT 11.8 Seconds (9.8-13.1) 09/10/17 16:45 INR 1.1 (0.9-1.2) 09/10/17 16:45 APTT 28.1 Seconds (25.6-37.1) 09/10/17 16:45 D-Dimer, Quantitative 91 ng/mlDDU (0-230) 09/10/17 16:45 Sodium 144 mmol/l (132-148) 09/13/17 08:35 Potassium 3.8 MMOL/L (3.6-5.0) 09/13/17 08:35 Chloride 105 mmol/L (98-107) 09/13/17 08:35 Carbon Dioxide 21 mmol/L (22-30) L 09/13/17 08:35 Anion Gap 22 (10-20) H 09/13/17 08:35 BUN 10 mg/dl (7-17) 09/13/17 08:35 Creatinine 0.7 mg/dl (0.7-1.2) 09/13/17 08:35 Est GFR ( Amer) > 60 09/13/17 08:35 Est GFR (Non-Af Amer) > 60 09/13/17 08:35 Random Glucose 98 mg/dL (65-105) 09/13/17 08:35 Calcium 9.6 mg/dL (8.4-10.2) 09/13/17 08:35 Phosphorus 2.8 mg/dl (2.5-4.5) 09/11/17 08:10 Magnesium 2.4 MG/DL (1.6-2.3) H 09/10/17 17:30 Total Bilirubin 0.5 mg/dl (0.2-1.3) 09/13/17 08:35 AST 27 U/L (14-36) 09/13/17 08:35 ALT 39 U/L (9-52) 09/13/17 08:35 Alkaline Phosphatase 158 U/L (38-126) H 09/13/17 08:35 Troponin I < 0.0120 ng/mL (0.00-0.120) 09/11/17 08:10 NT-Pro-B Natriuret Pep 185 pg/ml (0-900) 09/10/17 17:30 Total Protein 8.9 G/DL (6.3-8.2) H 09/13/17 08:35 Albumin 4.6 g/dL (3.5-5.0) 09/13/17 08:35 Globulin 4.2 gm/dL (2.2-3.9) H 09/13/17 08:35 Albumin/Globulin Ratio 1.1 (1.0-2.1) 09/13/17 08:35 Triglycerides 197 mg/DL (0-149) H 09/12/17 13:47 Cholesterol 261 mg/dL (0-199) H 09/12/17 13:47 LDL Cholesterol Direct 134 mg/dL (0-129) H 09/12/17 13:47 HDL Cholesterol 63 MG/DL (30-70) 09/12/17 13:47 Vitamin B12 557 pg/mL (239-931) 09/11/17 08:10 TSH 3rd Generation 22.50 mIU/ML (0.46-4.68) H 09/10/17 17:30 Blood Type A POSITIVE 09/10/17 16:45 Antibody Screen Negative 09/10/17 16:45 BBK History Checked Patient has bt 09/10/17 16:45 - Hospital Course Hospital Course: 62 yo ,f, PMhx/o HTN, Hypothyroidism, HLD, Anxiety admitted for chest pain in telemetry. EKg: Normal QRS, ST/T Changes (diffusely flattened t waves).Patient evaluated by Assembler For Puller Over Hand. Troponin x 1 neg. . TSH 22.5. patient on levothyroxine 100 mcg daily . Myocardial perfusion stress test normal, no ischemia present. Patient cleared to be discharged. Patient seen and examined bedside with Dr Dunbar. patient reports chest pain subsided, hemodynamically stable. Will have f/u with PMD 2-3 days. F/U Dr Deleon in 2 weeks Discharge Exam - Head Exam Head Exam: ATRAUMATIC, NORMAL INSPECTION, NORMOCEPHALIC - Eye Exam Eye Exam: Normal appearance - ENT Exam ENT Exam: Mucous Membranes Moist - Respiratory Exam Respiratory Exam: Clear to PA & Lateral. absent: Rales, Rhonchi, Wheezes, Stridor - Cardiovascular Exam Cardiovascular Exam: REGULAR RHYTHM, +S1, +S2 - GI/Abdominal Exam GI & Abdominal Exam: Normal Bowel Sounds, Soft. absent: Guarding, Rebound, Tenderness - Extremities Exam Extremities exam: normal inspection - Neurological Exam Neurological exam: Alert, Oriented x3 - Psychiatric Exam Psychiatric exam: Normal Affect, Normal Mood - Skin Skin Exam: Intact Discharge Plan - Discharge Medications Prescriptions: Atorvastatin [Lipitor] 20 mg PO DAILY #30 tab Fluticasone Propionate [Flonase] 2 spr ADILSON DAILY #1 bottle - Follow Up Plan Condition: FAIR Disposition: HOME/ ROUTINE Instructions: Anxiety, Adult (DC), Chest Pain (DC) Additional Instructions: pt. cleared for discharge to home today by , and f/u in 1 week Rx for meds provided follow up with pmd in 1 week follow up with instrument assembler in 1 week Referrals: Ernie Deleon MD [Staff Provider] - Trihsa Lam MD [Staff Provider] - Charles Hernandez APN [Staff Provider] -
[2017-09-14 11:48] VITALS: BP 137/85; PULSE 64; TEMP 98.9
--- NOTE | 2017-09-15 08:04 | PN ---
DATE: 09/13/2017 SUBJECTIVE: The patient is seen and examined. Interim events noted. Cardiology followup and intervention noted and appreciated. The patient remains in Progressive Care Unit on telemetry monitoring. Complains of anxiousness for pending test and also requesting her Xanax, which she takes at home regularly. Denies any chest pain. No shortness of breath. The patient is ambulatory and moving around and walking in the room anxiously. PHYSICAL EXAMINATION: GENERAL: The patient is in no acute distress. VITAL SIGNS: Stable. HEART: S1 and S2, normal and regular. LUNGS: Good bilateral air exchange. ABDOMEN: Soft and nontender. EXTREMITIES: No edema. No calf swelling. No tenderness. No acute ischemia. METROLOGY TECHNICIAN: Essentially unchanged. DIAGNOSTIC DATA: Available diagnostic data reviewed. Telemetry monitoring does not reveal significant arrhythmia. PLAN: Overall, the patient is medically stable. Going for nuclear stress test today. Case and plan discussed with the patient and nurse practitioner. Narinder Dunbar MD
--- NOTE | 2017-09-15 09:04 | CP.PCM.PN ---
Subjective - Date & Time of Evaluation Date of Evaluation: 09/14/17 Time of Evaluation: 07:00 - Subjective Subjective: stress test and echo normal Objective - Vital Signs/Intake and Output Vital Signs (last 24 hours): Temp Pulse Resp BP Pulse Ox 98.9 F 64 20 137/85 99 09/14/17 11:47 09/14/17 11:47 09/14/17 11:47 09/14/17 11:47 09/14/17 11:47 - Labs Labs: 09/13/17 08:35 09/13/17 08:35 PT 11.8 Seconds (9.8-13.1) 09/10/17 16:45 INR 1.1 (0.9-1.2) 09/10/17 16:45 APTT 28.1 Seconds (25.6-37.1) 09/10/17 16:45 - Constitutional Appears: Well - Head Exam Head Exam: ATRAUMATIC, NORMAL INSPECTION, NORMOCEPHALIC - Eye Exam Eye Exam: EOMI, Normal appearance, PERRL Pupil Exam: NORMAL ACCOMODATION, PERRL - ENT Exam ENT Exam: Mucous Membranes Moist, Normal Exam - Neck Exam Neck Exam: Full ROM, Normal Inspection. absent: Lymphadenopathy - Respiratory Exam Respiratory Exam: Clear to Ausculation Bilateral, NORMAL BREATHING PATTERN - Cardiovascular Exam Cardiovascular Exam: REGULAR RHYTHM, +S1, +S2, Murmur - GI/Abdominal Exam GI & Abdominal Exam: Soft, Normal Bowel Sounds. absent: Tenderness - Extremities Exam Extremities Exam: Full ROM, Normal Capillary Refill, Normal Inspection. absent : Joint Swelling, Pedal Edema - Back Exam Back Exam: NORMAL INSPECTION - Neurological Exam Neurological Exam: Alert, Awake, CN II-XII Intact, Normal Gait, Oriented x3 - Psychiatric Exam Psychiatric exam: Normal Affect, Normal Mood - Skin Skin Exam: Dry, Intact, Normal Color, Warm Assessment and Plan (1) Chest pain Assessment & Plan: ACS ruled out stress test normal echo normal LVEF Status: Acute (2) Anxiety Status: Chronic (3) HTN (hypertension) Assessment & Plan: cont bb and ccb add hctz/arb on dc Status: Chronic (4) Dyslipidemia Assessment & Plan: statins Status: Acute
--- NOTE | 2017-09-15 10:17 | CARD ---
APPROVED REPORT EXAM: Two-dimensional and M-mode echocardiogram with Doppler and color Doppler. Other Information Quality : GoodRhythm : NSR INDICATION Chest Pain 2D DIMENSIONS IVSd0.82 (0.7-1.1cm)LVDd4.11 (3.9-5.9cm) LVOT Diameter1.98 (1.8-2.4cm)PWd0.63 (0.7-1.1cm) IVSs1.05 (0.8-1.2cm)LVDs2.70 (2.5-4.0cm) FS (%) 34.2 %PWs0.98 (0.8-1.2cm) M-Mode DIMENSIONS Left Atrium (MM)3.47 (2.5-4.0cm)IVSd0.93 (0.7-1.1cm) Aortic Root2.73 (2.2-3.7cm)LVDd4.30 (4.0-5.6cm) Aortic Cusp Exc.1.85 (1.5-2.0cm)PWd0.77 (0.7-1.1cm) IVSs1.29 cmFS (%) 37 % LVDs2.73 (2.0-3.8cm)PWs1.08 cm Mitral Valve MV E Zyvrbuyc15.0cm/sMV DECEL [id number] A Uiapeghy88.9cm/s MV VGH49qaO/A ratio0.6MVA (PHT)3.18cm2 TDI Lateral E' Peak V6.60cm/sMedial E' Peak V4.07cm/sE/Lateral E'8.6 E/Medial E'14.0 Pulmonary Valve PV Peak Kfftdtig93.9cm/s LEFT VENTRICLE The left ventricle is normal size. There is normal left ventricular wall thickness. The left ventricular function is normal. The left ventricular ejection fraction is 60% There is normal LV segmental wall motion. Transmitral Doppler flow pattern is Grade I-abnormal relaxation pattern. No left ventricle thrombus noted on this study. There is no ventricular septal defect visualized. There is no left ventricular aneurysm. There is no mass noted in the left ventricle. RIGHT VENTRICLE The right ventricle is normal size. There is normal right ventricular wall thickness. The right ventricular systolic function is normal. ATRIA The left atrium size is normal. The right atrium size is normal. The interatrial septum is intact with no evidence for an atrial septal defect. AORTIC VALVE The aortic valve is normal in structure. No aortic regurgitation is present. There is no aortic valvular stenosis. There is no aortic valvular vegetation. MITRAL VALVE The mitral valve is normal in structure. There is no evidence of mitral valve prolapse. There is no mitral valve stenosis. There is no mitral valve regurgitation noted. TRICUSPID VALVE The tricuspid valve is normal in structure. There is no tricuspid valve regurgitation noted. There is no tricuspid valve prolapse or vegetation. There is no tricuspid valve stenosis. PULMONIC VALVE The pulmonary valve is normal in structure. There is no pulmonic valvular regurgitation. There is no pulmonic valvular stenosis. GREAT VESSELS The aortic root is normal in size. The ascending aorta is normal in size. The IVC is normal in size and collapses >50% with inspiration. PERICARDIAL EFFUSION The pericardium appears normal. There is no pleural effusion. <Conclusion> Essentially Normal Echocardiogram
== END 2017-09-14 14:06 | disposition home or self-care (01) | DRG 143 ==
LOC: H.ER 15:54 → H.ERHOLD 19:15 → H.TEL 22:08 → OBSVTOIN 09-11 12:35
PROVIDERS: ADMIT Internal Medicine; ATTEND Internal Medicine
DX: R07.9 Chest pain, unspecified (principal); E87.6 Hypokalemia; E03.9 Hypothyroidism, unspecified; E78.00 Pure hypercholesterolemia, unspecified; E78.5 Hyperlipidemia, unspecified; F32.9 Major depressive disorder, single episode, unspecified; G43.909 Migraine, unspecified, not intractable, without status migrainosus; I10 Essential (primary) hypertension; M19.90 Unspecified osteoarthritis, unspecified site; F41.1 Generalized anxiety disorder; Z88.6 Allergy status to analgesic agent; Z88.5 Allergy status to narcotic agent

== ENCOUNTER 2018-02-02 16:01 | Emergency (ER) | payer MEDICAID ==
[2018-02-02 16:01] VITALS: BMI 24.5
[2018-02-02 16:11] VITALS: TEMP 98.3; O2SAT 100
[2018-02-02 17:40] LABS: BASO % 0.4 % (0.0-2.0); EOS % 0.1 % (0.0-4.0); HEMOGLOBIN 13.3 g/dL (12.0-16.0); LYMPH # 2.1 K/uL (1.0-4.3); MEAN CELL VOLUME 94.9 fl (81.0-99.0); MEAN CORPUSCULAR HEMOGLOBIN 33.4 pg (27.0-31.0); MEAN CORPUSCULAR HGB CONC 35.2 g/dL (33.0-37.0); MEAN PLATELET VOLUME 7.5 fl (7.2-11.7); MONO # 0.7 K/uL (0.0-0.8); MONO % 7.7 % (0.0-10.0); NEUT # 5.7 K/uL (1.8-7.0); NEUT % 66.8 % (50.0-75.0); RBC 3.97 Mil/uL (3.80-5.20); RED CELL DISTRIBUTION WIDTH 13.7 % (11.5-14.5); WHITE BLOOD COUNT 8.5 K/uL (4.8-10.8)
[2018-02-02 17:52] LABS: ALB/GLOB RATIO 1.2 (1.0-2.1); ALBUMIN 4.9 g/dL (3.5-5.0); ALT/SGPT 33 U/L (9-52); AST/SGOT 30 U/L (14-36); BLOOD UREA NITROGEN 11 mg/dl (7-17); CALCIUM 10.1 mg/dL (8.4-10.2); GFR NON-AFRICAN AMERICAN > 60
--- NOTE | 2018-02-02 18:14 | ED PDOC ---
HPI: Chest Pain Time Seen by Provider: 02/02/18 16:34 Chief Complaint (Nursing): Chest Pain Chief Complaint (Provider): Chest Pain History Per: Patient History/Exam Limitations: no limitations Onset/Duration Of Symptoms: Days Additional Complaint(s): Patient is a 62 y/o female with history of anxiety, panic attacks, and hypothyroidism as well as surgical history of tubal ligation and ovarian cyst surgery who presents to the ED complaining of palpitations, onset a few days ago. Patient reports that the palpitations went away yesterday but came back this morning and she started vomiting. She states the vomiting stopped at 06:30 and her brought her to the ED later. She takes xanax for her anxiety and she denies being compliant with her thyroid medication. She denies fever, vomiti ng, or chills. denies palpitations at this time. Past Medical History Reviewed: Historical Data, Nursing Documentation, Vital Signs Vital Signs: Last Vital Signs Temp 98.3 F 02/02/18 16:08 Pulse 67 02/02/18 16:08 Resp 16 02/02/18 16:08 BP 184/77 H 02/02/18 16:08 Pulse Ox 100 02/02/18 16:08 - Medical History PMH: Anxiety, Arthritis, Depression, Diverticulitis, Gastrointestinal Ulcer, Hiatal Hernia, HTN, Hypercholesterolemia, Hypothyroidism, Migraine Denies: HIV, Chronic Kidney Disease - Surgical History Surgical History: No Surg Hx - Family History Family History: States: Unknown Family Hx, Hypertension - Social History Current smoker - smoking cessation education provided: No Alcohol: None Drugs: Denies - Immunization History Hx Tetanus Toxoid Vaccination: No Hx Influenza Vaccination: No Hx Pneumococcal Vaccination: No - Home Medications Home Medications: Ambulatory Orders Medication Instructions Recorded Alprazolam [Xanax] 0.5 mg PO TID 12/16/16 Dicyclomine [Bentyl] 20 mg PO DAILY PRN 12/16/16 Metoprolol Tartrate 25 mg PO DAILY 12/16/16 Levothyroxine [Synthroid] 88 mcg PO DAILY 09/10/17 Zolpidem [Ambien] 10 mg PO DAILY 09/10/17 NIFEdipine ER [Procardia XL] 30 [address] 09/13/17 Atorvastatin [Lipitor] 20 mg PO DAILY #30 tab 09/14/17 Fluticasone Propionate [Flonase] 2 spr ADILSON DAILY #1 bottle 09/14/17 - Allergies Allergies/Adverse Reactions: Allergies Allergy/AdvReac Type Severity Reaction Status Date / Time diphenhydramine Allergy RASH Verified 02/02/18 16:05 [From Benadryl] esomeprazole [From Nexium] Allergy PAIN Verified 02/02/18 16:05 ibuprofen Allergy PAIN Verified 02/02/18 16:05 ketorolac tromethamine Allergy PAIN Verified 02/02/18 16:05 [From Toradol] oxycodone HCl [From Percocet] Allergy PAIN Verified 02/02/18 16:05 Review of Systems ROS Statement: Except As Marked, All Systems Reviewed And Found Negative Constitutional: Negative for: Fever, Chills Cardiovascular: Positive for: Palpitations Gastrointestinal: Negative for: Vomiting Physical Exam - Reviewed Nursing Documentation Reviewed: Yes Vital Signs Reviewed: Yes - Physical Exam Appears: Positive for: Non-toxic, No Acute Distress Head Exam: Positive for: ATRAUMATIC, NORMOCEPHALIC Skin: Positive for: Normal Color, Warm, Dry Eye Exam: Positive for: EOMI, Normal appearance, PERRL Neck: Positive for: Normal, Painless ROM Cardiovascular/Chest: Positive for: Regular Rate, Rhythm. Negative for: Murmur Respiratory: Positive for: Normal Breath Sounds. Negative for: Respiratory Distress Gastrointestinal/Abdominal: Positive for: Normal Exam, Soft. Negative for: Tenderness Back: Positive for: Normal Inspection. Negative for: L CVA Tenderness, R CVA Tenderness Extremity: Positive for: Normal ROM. Negative for: Pedal Edema, Deformity Neurologic/Psych: Positive for: Alert, Oriented. Negative for: Motor/Sensory Deficits - Laboratory Results Result Diagrams: 02/02/18 17:25 02/02/18 17:25 - ECG ECG Rhythm: Positive for: Normal ST Segment (no ST elevation; no ST depression), Sinus Rhythm Rate: 60 O2 Sat by Pulse Oximetry: 100 (RA) Pulse Ox Interpretation: Normal Medical Decision Making Medical Decision Making: Time: 16:47 Impression: palpitations Initial Plan: EKG CMP T4 TSH Troponin I CBC w/ diff ekg- nsr [address] st depression ----- Scribe Attestation: Documented by Garth Sykes, acting as a scribe for Maribel Edwards MD Provider Scribe Attestation: All medical record entries made by the Scribe were at my direction and personally dictated by me. I have reviewed the chart and agree that the record accurately reflects my personal performance of the history, physical exam, medical decision making, and the department course for this patient. I have also personally directed, reviewed, and agree with the discharge instructions and disposition. Disposition - Clinical Impression Clinical Impression: Palpitations - Disposition Referrals: Scarlett España MD [Medical Doctor] - Trisha Lam MD [Staff Provider] - Condition: IMPROVED Additional Instructions: follow up with your primary doctor Dr Lam in 1-2 days also follow up with Dr. España for management of your hyperthyroidism and resume your medications and make sure to take them without fail return to the ED with any worsening or concerning symptoms Instructions: Palpitations (DC) Forms: [employer] (Polish)
[2018-02-02 18:47] LABS: T4 10.1 ug/dl (5.5-11.0)
[2018-02-02] MEDS ORDERED: Potassium Chloride 20 mEq ER Tab PO ONE ×2 (19:20→19:40)
[2018-02-02 21:36] VITALS: BP 150/76; PULSE 80; RESP 18
--- NOTE | 2018-02-03 21:58 | CARD ---
APPROVED REPORT Date of service: 02/02/2018 EKG Measurement Heart [id number] <Conclusion> Normal sinus rhythm Nonspecific ST and T wave abnormality Abnormal ECG
== END 2018-02-02 22:10 | disposition home or self-care (01) ==
LOC: H.ER 16:01
DX: R00.2 Palpitations (principal); I10 Essential (primary) hypertension

== ENCOUNTER 2018-02-27 14:19 | Emergency (ER) | payer MEDICAID ==
[2018-02-27 14:19] VITALS: BMI 24.5
[2018-02-27] MEDS ORDERED: Morphine 4 MG/ML VIAL IVP ONE (14:59)
[2018-02-27] MEDS ORDERED: Sodium Chloride 0.9% 1,000 ML IV STA (15:00)
[2018-02-27] MEDS ORDERED: Morphine 4 MG/ML VIAL ONE (15:07)
[2018-02-27 15:26] LABS: BASO # 0.1 K/uL (0.0-0.2); BASO % 0.3 % (0.0-2.0); EOS % 0.1 % (0.0-4.0); HEMOGLOBIN 14.8 g/dL (12.0-16.0); LYMPH # 1.6 K/uL (1.0-4.3); LYMPH % 9.2 % (20.0-40.0); MEAN CELL VOLUME 95.9 fl (81.0-99.0); MEAN CORPUSCULAR HEMOGLOBIN 32.4 pg (27.0-31.0); MEAN CORPUSCULAR HGB CONC 33.8 g/dL (33.0-37.0); MEAN PLATELET VOLUME 7.6 fl (7.2-11.7); MONO # 0.9 K/uL (0.0-0.8); MONO % 5.2 % (0.0-10.0); NEUT # 14.6 K/uL (1.8-7.0); NEUT % 85.2 % (50.0-75.0); NRBC % 0.1 % (0.0-0.0); PLATELET COUNT 347 K/uL (130-400); RBC 4.56 Mil/uL (3.80-5.20); RED CELL DISTRIBUTION WIDTH 13.5 % (11.5-14.5); WHITE BLOOD COUNT 17.1 K/uL (4.8-10.8)
--- NOTE | 2018-02-27 15:29 | ED PDOC ---
HPI: Abdomen Time Seen by Provider: 02/27/18 14:43 Chief Complaint (Nursing): Abdominal Pain Chief Complaint (Provider): Abdominal Pain History Per: Patient History/Exam Limitations: no limitations Onset/Duration Of Symptoms: Hrs Current Symptoms Are (Timing): Still Present Location Of Pain/Discomfort: RUQ, Other (right sided flank pain) Additional Complaint(s): 62 y/o female presents to the ED for evaluation of constant right sided abdominal pain and right sided flank pain, onset this morning. Patient states the pain started in the RUQ and radiates to the right flank. Patient states pain is associated with one episode of vomiting. Patient reports of having three episodes of similar pain in the past but states she has never been diagnosed with anything specific. Denies diarrhea, urinary symptoms, fevers and taking medications for pain relief. PMD: Trisha Lam Past Medical History Reviewed: Historical Data, Nursing Documentation, Vital Signs Vital Signs: Last Vital Signs Temp 98.8 F 02/27/18 14:22 Pulse 102 H 02/27/18 14:22 Resp 18 02/27/18 14:22 BP 142/83 02/27/18 14:22 Pulse Ox 100 02/27/18 14:22 - Medical History PMH: Anxiety, Arthritis, Depression, Diverticulitis, Gastrointestinal Ulcer, Hiatal Hernia, HTN, Hypercholesterolemia, Hypothyroidism, Migraine Denies: HIV, Chronic Kidney Disease - Surgical History Surgical History: No Surg Hx - Family History Family History: States: Hypertension - Social History Current smoker - smoking cessation education provided: No Alcohol: None Drugs: Denies - Immunization History Hx Tetanus Toxoid Vaccination: No Hx Influenza Vaccination: No Hx Pneumococcal Vaccination: No - Home Medications Home Medications: Ambulatory Orders Medication Instructions Recorded Alprazolam [Xanax] 0.5 mg PO TID 12/16/16 Dicyclomine [Bentyl] 20 mg PO DAILY PRN 12/16/16 Metoprolol Tartrate 25 mg PO DAILY 12/16/16 Levothyroxine [Synthroid] 88 mcg PO DAILY 09/10/17 Zolpidem [Ambien] 10 mg PO DAILY 09/10/17 NIFEdipine ER [Procardia XL] 30 mg PO DAILY ter 09/13/17 Atorvastatin [Lipitor] 20 mg PO DAILY #30 tab 09/14/17 Fluticasone Propionate [Flonase] 2 spr ADILSON DAILY #1 bottle 09/14/17 Ciprofloxacin HCl [Cipro] 500 mg PO BID #14 tab 02/27/18 Metronidazole [Flagyl] 500 mg PO BID #14 tab 02/27/18 - Allergies Allergies/Adverse Reactions: Allergies Allergy/AdvReac Type Severity Reaction Status Date / Time diphenhydramine Allergy RASH Verified 02/02/18 16:05 [From Benadryl] esomeprazole [From Nexium] Allergy PAIN Verified 02/02/18 16:05 ibuprofen Allergy PAIN Verified 02/02/18 16:05 ketorolac tromethamine Allergy PAIN Verified 02/02/18 16:05 [From Toradol] oxycodone HCl [From Percocet] Allergy PAIN Verified 02/02/18 16:05 Review of Systems ROS Statement: Except As Marked, All Systems Reviewed And Found Negative Constitutional: Positive for: Fever Gastrointestinal: Positive for: Vomiting, Abdominal Pain. Negative for: Diarrhea Genitourinary Female: Negative for: Dysuria, Frequency, Hematuria Musculoskeletal: Positive for: Back Pain (right sided flank pain) Physical Exam - Reviewed Nursing Documentation Reviewed: Yes Vital Signs Reviewed: Yes - Physical Exam Appears: Positive for: No Acute Distress. Negative for: Uncomfortable (Comfortable) Head Exam: Positive for: ATRAUMATIC Skin: Positive for: Normal Color, Warm, Dry Eye Exam: Positive for: Normal appearance, EOMI, PERRL Neck: Positive for: Normal, Painless ROM Cardiovascular/Chest: Positive for: Regular Rate, Rhythm. Negative for: Murmur Respiratory: Positive for: Normal Breath Sounds. Negative for: Respiratory Distress Gastrointestinal/Abdominal: Positive for: Tenderness (Mild tenderness to the RUQ ) Back: Positive for: Normal Inspection, R CVA Tenderness. Negative for: L CVA T enderness, Vertebral Tenderness Extremity: Positive for: Normal ROM. Negative for: Pedal Edema, Deformity Neurologic/Psych: Positive for: Alert, Oriented (x3). Negative for: Motor/Sensory Deficits - Laboratory Results Result Diagrams: 02/27/18 15:15 02/27/18 15:15 - ECG O2 Sat by Pulse Oximetry: 100 (RA) Pulse Ox Interpretation: Normal - Progress Re-evaluation Time: 18:15 Condition: Re-examined, Improved Medical Decision Making Medical Decision Making: Time: 1515 Impression: RUQ pain and flank pain Differentials include but not limited to Gall Bladder disease, kidney stones and UTI Plan: -- CT Abd/Pelvis IV Contrast -- EKG -- CMP -- Lipase -- ED Urine Dipstick -- CBC with Differentials -- Bentyl 10 mg PO -- Morphine 4 mg IVP -- Sodium Chloride 0.9% IV 1000 mls/hr -- Zofran Inj 4 mg IVP -- IV Insertion Scribe Attestation: Documented by Anjelica Jackson, acting as a scribe Tea Mattson MD. Provider Scribe Attestation: All medical record entries made by the Scribe were at my direction and personally dictated by me. I have reviewed the chart and agree that the record accurately reflects my personal performance of the history, physical exam, medical decision making, and the department course for this patient. I have also personally directed, reviewed, and agree with the discharge instructions and disposition. Disposition - Clinical Impression Clinical Impression: Abdominal pain in female, Enteritis - Patient ED Disposition Is Patient to be Admitted: No Doctor Will See Patient In The: Office Counseled Patient/Family Regarding: Studies Performed, Diagnosis, Need For Followup - Disposition Referrals: Gil Storey MD [Medical Doctor] - Disposition: Routine/Home Disposition Time: 18:16 Condition: GOOD Additional Instructions: HEATHER MCCAIN, thank you for letting us take care of you today. Your provider was Jacinto Mattson MD and you were treated for SEVERE ABDOMINAL PAIN. The emergency medical care you received today was directed at your acute symptoms. If you were prescribed any medication, please fill it and take as directed. It may take several days for your symptoms to resolve. Return to the Emergency Department if your symptoms worsen, do not improve, or if you have any other problems. Please contact your doctor or call one of the physicians/clinics you have been referred to that are listed on the Patient Visit Information form that is included in your discharge packet. Bring any paperwork you were given at discharge with you along with any medications you are taking to your follow up visit. Our treatment cannot replace ongoing medical care by a primary care provider outside of the emergency department. Thank you for allowing the [facility] team to be part of your care today. If you had an X-Ray or CT scan: A Radiologist will review the ED reading if any change in treatment is needed we will contact you. If you had a blood, urine, or wound culture: It will take several days for the results, if any change in treatment is needed we will contact you. If you had an STI test: It will take 48 hours for the results. Please call after 1 week if you have not heard back. Prescriptions: Ciprofloxacin HCl [Cipro] 500 mg PO BID #14 tab Metronidazole [Flagyl] 500 mg PO BID #14 tab Instructions: Diarrhea in Adolescents and Adults
[2018-02-27 15:35] LABS: ALB/GLOB RATIO 1.1 (1.0-2.1); ALBUMIN 4.6 g/dL (3.5-5.0); ALT/SGPT 32 U/L (9-52); AST/SGOT 30 U/L (14-36); BLOOD UREA NITROGEN 12 mg/dl (7-17); CALCIUM 9.9 mg/dL (8.4-10.2); GFR NON-AFRICAN AMERICAN > 60; LIPASE 72 U/L (23-300)
[2018-02-27 16:04] LABS: SQUAMOUS EPITHIAL 4 /hpf (0-5); URINE AMORPHOUS SEDIMENT RARE /ul (<OCC); URINE BACTERIA OCC (<OCC); URINE BILIRUBIN NEGATIVE (NEGATIVE); URINE BLOOD MODERATE (NEGATIVE); URINE CLARITY CLOUDY (Clear); URINE COLOR AMBER (YELLOW); URINE GLUCOSE (UA) NEG (Normal); URINE HYALINE CAST 0-2 /hpf (0-2); URINE LEUKOCYTE ESTERASE NEG Leu/uL (Negative); URINE PROTEIN 30 mg/dL (NEGATIVE); URINE UROBILINOGEN 0.2-1.0 mg/dL (0.2-1.0)
[2018-02-27] MEDS ORDERED: Iohexol 300 100 ML IJ ONE (16:17)
[2018-02-27] MEDS ORDERED: Sodium Chloride 0.9% 50 ML IV ONE (16:18)
[2018-02-27 16:41] LABS: ANISOCYTOSIS SLIGHT; BANDS 6 % (0-2); LYMPHOCYTE 3 % (20-50); MONOCYTE 3 % (0-10); NEUTROPHIL 84 % (42-75); PLATELET ESTIMATE NORMAL (NORMAL); REACTIVE LYMPHOCYTES 4 % (0-0); SPHEROCYTES SLIGHT; TOTAL CELLS COUNTED 100
--- NOTE | 2018-02-27 17:17 | CT ---
Date of service: 02/27/2018 PROCEDURE: CT Abdomen and Pelvis. HISTORY: Abdominal pain fever COMPARISON: Comparison made with CT scan abdomen pelvis 11/06/2015. TECHNIQUE: Contiguous axial images of the abdomen and pelvis performed following intravenous injection of 80 cc Omnipaque 300 contrast material. Additional 2D sagittal and coronal reformats generated. Radiation dose: Total exam DLP = 356.38 mGy-cm. This CT exam was performed using one or more of the following dose reduction techniques: Automated exposure control, adjustment of the mA and/or kV according to patient size, and/or use of iterative reconstruction technique. FINDINGS: LOWER THORAX: Heart size within range of normal. No significant pericardial effusion. Tiny hiatal hernia. Minimal passive/dependent type atelectasis both posterior lower lung zones. LIVER: Liver exhibits normal size measuring over 13 cm in CC dimension. Mild diffuse fatty hepatic infiltration. No obvious hepatic mass collection or calcification. Portal and splenic veins are opacified. GALLBLADDER AND BILE DUCTS: Gallbladder physiologically distended. No evidence of intraluminal gallbladder calculi.. PANCREAS: Pancreas appears slightly atrophic and fatty replaced. No obvious pancreatic masses collections or calcifications. Pancreatic duct is visible and appears slightly prominent at the level of the pancreatic head. SPLEEN: Unremarkable. No splenomegaly. ADRENALS: Mildly prominent bilateral adrenal glands.. KIDNEYS AND URETERS: Unremarkable. No stone or hydronephrosis. Kidneys demonstrate symmetric nephrograms. No evidence of nephrolithiasis or hydronephrosis. Bilateral renal cysts are again noted. BLADDER: Urinary bladder incompletely distended which may in part account for slight the area. REPRODUCTIVE: Unremarkable as visualized APPENDIX: Normal appendix. BOWEL: Evaluation of the bowel slightly limited due to the lack of oral contrast material. The stomach is distended with liquid and air.. There are multiple mildly distended fluid-filled loops of small bowel some of which exhibit of mild wall thickening and enhancement. Findings likely represent a nonspecific enteritis. Additionally, there appears to be fecalized content within multiple loops of small bowel. Clinical correlation recommended. The the the Fluid consistency stool within the right and transverse colon; rule out diarrheal illness... There appears to be at least 1 right-sided colonic diverticula PERITONEUM: Unremarkable. No fluid collection. No free air. Small fat containing umbilical hernia. LYMPH NODES: Unremarkable. No enlarged lymph nodes. VASCULATURE: Unremarkable. No aortic aneurysm. BONES: No fracture or destructive lesion. OTHER FINDINGS: None. IMPRESSION: Findings suggest mild enteritis as detailed above.. Clinical correlation recommended.. There also appears to be fluid stool within the right and transverse colon; rule out diarrheal illness. Diverticulosis without acute diverticulitis Mild fatty hepatic infiltration. Slightly prominent pancreatic duct at the level of the pancreatic head. Bilateral renal cysts.
[2018-02-27] MEDS ORDERED: metroNIDAZOLE 500mg/100ml NS 100 ML IVPB STA (18:51)
[2018-02-27] MEDS ORDERED: Ciprofloxacin 400mg/200ml D5W 400 MG/200 ML BAG IVPB STA (18:51)
[2018-02-27 19:11] VITALS: BP 120/78; PULSE 78; RESP 19; TEMP 97; O2SAT 98
--- NOTE | 2018-02-27 22:45 | CARD ---
APPROVED REPORT Date of service: 02/27/2018 EKG Measurement Heart [id number] <Conclusion> Sinus tachycardia Nonspecific ST and T wave abnormality Abnormal ECG
== END 2018-02-27 19:11 | disposition home or self-care (01) ==
LOC: H.ER 14:19
DX: K52.9 Noninfective gastroenteritis and colitis, unspecified (principal); R10.11 Right upper quadrant pain; E03.9 Hypothyroidism, unspecified; E78.00 Pure hypercholesterolemia, unspecified; I10 Essential (primary) hypertension; Z88.5 Allergy status to narcotic agent
CPT/HCPCS: 74177; 80053; 81003; 83690; 85025; 93005; 96374; 96375; 99283; J2270; J2405; J7030; Q9967

== ENCOUNTER 2018-04-02 17:30 | Emergency (ER) | payer MEDICAID ==
[2018-04-02 17:30] VITALS: BMI 24.5
[2018-04-02] MEDS ORDERED: Sodium Chloride 0.9% 1,000 ML IV STA (18:38)
[2018-04-02] MEDS ORDERED: Morphine 4 MG/ML VIAL IVP STA (18:41)
--- NOTE | 2018-04-02 19:00 | ED PDOC ---
HPI: Abdomen Time Seen by Provider: 04/02/18 18:01 Chief Complaint (Nursing): Abdominal Pain Chief Complaint (Provider): Abdominal Pain History Per: Patient History/Exam Limitations: no limitations Onset/Duration Of Symptoms: Days (x1 week) Additional Complaint(s): 63 y/o female with history of HTN, anxiety, and high cholesterol presents to the ED complaining of abdominal pain onset x1 week ago. Patient states that the pain has gotten worse since onset and describes it as a right sided pain radiating from right flank to right abdomen. Patient reports x2 episodes of associated nbnb vomiting. Patient states she had diarrhea earlier this week but is resolved now. She denies any black or bloody stool. She states that her symptoms are similar in presentation to her visit a month ago; at that time she got a CT and was diagnosed with enteritis. She denies fever, chills but does report having a decreased appetite as well as dysuria and urinary frequency. She took Tylenol with no relief. PMD: Sandro Morrell Past Medical History Reviewed: Historical Data, Nursing Documentation, Vital Signs Vital Signs: Last Vital Signs Temp 97.8 F 04/02/18 18:01 Pulse 76 04/02/18 18:01 Resp 19 04/02/18 18:01 BP 171/73 H 04/02/18 18:01 Pulse Ox 100 04/02/18 18:01 - Medical History PMH: Anxiety, Arthritis, Depression, Diverticulitis, Gastrointestinal Ulcer, Hiatal Hernia, HTN, Hypercholesterolemia, Hypothyroidism, Migraine Denies: HIV, Chronic Kidney Disease - Family History Family History: States: Unknown Family Hx, Hypertension - Immunization History Hx Tetanus Toxoid Vaccination: No Hx Influenza Vaccination: No Hx Pneumococcal Vaccination: No - Home Medications Home Medications: Ambulatory Orders Medication Instructions Recorded RX: Alprazolam [Xanax] 0.5 mg PO TID 12/16/16 RX: Dicyclomine [Bentyl] 20 mg PO DAILY PRN 12/16/16 RX: Metoprolol Tartrate 25 mg PO DAILY 12/16/16 RX: Levothyroxine [Synthroid] 88 mcg PO DAILY 09/10/17 RX: Zolpidem [Ambien] 10 mg PO DAILY 09/10/17 RX: NIFEdipine ER [Procardia XL] 30 [address] 09/13/17 RX: Atorvastatin [Lipitor] 20 mg PO DAILY #30 tab 09/14/17 RX: Fluticasone Propionate 2 spr ADILSON DAILY #1 bottle 09/14/17 [Flonase] Ciprofloxacin HCl [Cipro] 500 mg PO BID #14 tab 02/27/18 Dicyclomine [Dicyclomine HCl] 10 mg PO TID #15 cap 02/27/18 Metronidazole [Flagyl] 500 mg PO BID #14 tab 02/27/18 Dicyclomine [Bentyl] 20 mg PO QID PRN #20 tab 04/02/18 Famotidine [Pepcid] 40 mg PO DAILY PRN #30 tab 04/02/18 RX: Acetaminophen [Tylenol Extra 1,000 mg PO Q6 PRN #100 tablet 04/02/18 Strength] - Allergies Allergies/Adverse Reactions: Allergies Allergy/AdvReac Type Severity Reaction Status Date / Time diphenhydramine Allergy RASH Verified 02/02/18 16:05 [From Benadryl] esomeprazole [From Nexium] Allergy PAIN Verified 02/02/18 16:05 ibuprofen Allergy PAIN Verified 02/02/18 16:05 ketorolac tromethamine Allergy PAIN Verified 02/02/18 16:05 [From Toradol] oxycodone HCl [From Percocet] Allergy PAIN Verified 02/02/18 16:05 Review of Systems ROS Statement: Except As Marked, All Systems Reviewed And Found Negative (as per HPI otherwise negative) Constitutional: Negative for: Fever, Chills Gastrointestinal: Positive for: Vomiting, Abdominal Pain, Diarrhea (resolved now). Negative for: Melena, Hematochezia Genitourinary Female: Positive for: Dysuria, Frequency Physical Exam - Reviewed Nursing Documentation Reviewed: Yes Vital Signs Reviewed: Yes - Physical Exam Appears: Positive for: Non-toxic, In Acute Distress (mild painful distress) Head Exam: Positive for: ATRAUMATIC, NORMOCEPHALIC Skin: Positive for: Warm, Dry Eye Exam: Positive for: EOMI, PERRL ENT: Positive for: Pharynx Is (clear) Neck: Positive for: Painless ROM, Supple Cardiovascular/Chest: Positive for: Regular Rate, Rhythm. Negative for: Murmur Respiratory: Positive for: Normal Breath Sounds. Negative for: Respiratory Distress Gastrointestinal/Abdominal: Positive for: Soft, Tenderness (tenderness to palpation in RUQ and RLQ). Negative for: Normal Exam (hyperaesthetic), Mass, Distended, Guarding, Rebound Back: Positive for: Normal Inspection, R CVA Tenderness. Negative for: L CVA Tenderness Extremity: Positive for: Normal ROM. Negative for: Deformity Lymphatic: Negative for: Adenopathy Neurologic/Psych: Positive for: Mood/Affect (anxious mood and affect). Negative for: Motor/Sensory Deficits - Laboratory Results Result Diagrams: 04/02/18 18:59 04/02/18 18:59 - ECG O2 Sat by Pulse Oximetry: 100 (RA) Pulse Ox Interpretation: Normal Medical Decision Making Medical Decision Making: Time: 18:36 Initial Impression: acute on chronic abdominal pain Initial Plan: * CMP * Drug screen * Lactic acid * Lipase * CBC w/ diff * PTT * Prothrombin time * Bentyl * Morphine * Pepcid * Reglan * Tylenol 975 mg PO * IV Fluids * Urine C&S * UA Time: 19:43 Labs demonstrate low potassium and hematuria but but not UTI. Discussed with patient findings. CT ordered to r/o renal calculus. Patient reports that she has a history of low potassium. DW pt findings and plan of care. Pt further reporting that she ran out of her xanax. Current symptoms may be exacerbated by anxiousness. Time: 20:52 CT Abd Pelvis COMMENTS: The liver is of uniform attenuation without mass or defect. There is no intra or extrahepatic biliary ductal dilatation. The spleen is normal. The gallbladder is within normal limits. The pancreas is of normal contour and attenuation characteristics. There is no evidence of adrenal mass. Small hiatal hernia is seen. The kidneys are normal in size, shape, and configuration. There is no hydroureter or hydronephrosis. There is a 3 mm non-obstructing calculus noted in the mid pole of left kidney. There is a 4 cm cyst present in the mid pole of left kidney. There is a 2.5 cm cyst in the lower pole of right kidney. There is no evidence for appendicitis. There is no bowel wall thickening. No evidence for small or large bowel obstruction. There is no evidence of abdominal ascites or lymphadenopathy. There is scattered diverticulosis present throughout the colon, no evidence of acute diverticulitis. Very small fat-containing umbilical hernia is seen. There is no evidence of intrinsic or extrinsic bladder mass. There is no pelvic ascites or lymphadenopathy. The uterus and ovaries are unremarkable. Scarring is seen in the right middle lobe and lingula. There are no pleural effusions. The bony structures are free of lytic or blastic lesions. IMPRESSION: 1. Small hiatal hernia. 2. Left renal non-obstructing calculus and cyst. 3. Right renal cyst. 4. Scattered diverticulosis present throughout the colon, no evidence of acute diverticulitis. 5. Very small fat-containing umbilical hernia. DW pt that CT not demonstrating any acute issues at this time and pt needs followup. Stable for discharge. Scribe Attestation: Documented by Garth Sykes acting as a scribe for Fiona Castañeda MD. Provider Scribe Attestation: All medical record entries made by the Scribe were at my direction and personally dictated by me. I have reviewed the chart and agree that the record accurately reflects my personal performance of the history, physical exam, medical decision making, and the department course for this patient. I have also personally directed, reviewed, and agree with the discharge instructions and disposition. Disposition - Clinical Impression Clinical Impression: Abdominal pain - Disposition Referrals: Sandro Morrell MD [Family Provider] - Lauro Kelley MD [Staff Provider] - Disposition: Routine/Home Disposition Time: 21:00 Condition: STABLE Additional Instructions: FOLLOW UP WITH YOUR PCP AND INTERVENTION TEACHER SOON POSSIBLE FOR FURTHER EVALUATION. IF NO OTHER SOURCE IS FOUND FOR YOUR ABDOMINAL PAIN, YOU MAY NEED TO START SEEING PAIN MANAGEMENT AGAIN FOR YOUR PAIN. Prescriptions: RX: Acetaminophen [Tylenol Extra Strength] 1,000 mg PO Q6 PRN #100 tablet PRN Reason: FEVER OR PAIN Dicyclomine [Bentyl] 20 mg PO QID PRN #20 tab PRN Reason: abdominal pain Famotidine [Pepcid] 40 mg PO DAILY PRN #30 tab PRN Reason: reflux Instructions: Chronic Pain (DC), Acute Abdomen (Belly Pain), Adult (DC) Forms: [facility] ED School/Work Excuse
[2018-04-02] MEDS ORDERED: Morphine 4 MG/ML VIAL ONE (19:01)
[2018-04-02 19:05] LABS: BASO % 0.4 % (0.0-2.0); EOS % 0.3 % (0.0-4.0); HEMOGLOBIN 13.5 g/dL (12.0-16.0); LYMPH # 1.6 K/uL (1.0-4.3); LYMPH % 24.8 % (20.0-40.0); MEAN CELL VOLUME 94.7 fl (81.0-99.0); MEAN CORPUSCULAR HEMOGLOBIN 31.7 pg (27.0-31.0); MEAN CORPUSCULAR HGB CONC 33.5 g/dL (33.0-37.0); MEAN PLATELET VOLUME 7.3 fl (7.2-11.7); MONO # 0.7 K/uL (0.0-0.8); MONO % 10.4 % (0.0-10.0); NEUT # 4.2 K/uL (1.8-7.0); NEUT % 64.1 % (50.0-75.0); NRBC % 0.2 % (0.0-0.0); RBC 4.25 Mil/uL (3.80-5.20); RED CELL DISTRIBUTION WIDTH 13.5 % (11.5-14.5); WHITE BLOOD COUNT 6.5 K/uL (4.8-10.8)
[2018-04-02 19:08] LABS: SQUAMOUS EPITHIAL 2 /hpf (0-5); URINE BACTERIA RARE (<OCC); URINE BILIRUBIN NEGATIVE (NEGATIVE); URINE BLOOD MODERATE (NEGATIVE); URINE CLARITY CLEAR (Clear); URINE COLOR YELLOW (YELLOW); URINE GLUCOSE (UA) NEG (Normal); URINE LEUKOCYTE ESTERASE NEG Leu/uL (Negative); URINE PROTEIN NEGATIVE (NEGATIVE); URINE UROBILINOGEN 0.2-1.0 mg/dL (0.2-1.0)
[2018-04-02 19:10] LABS: INR 1.1; PROTHROMBIN TIME 12.1 Seconds (9.8-13.1)
[2018-04-02 19:12] LABS: PARTIAL THROMBOPLASTIN TIME 32.8 Seconds (25.6-37.1)
[2018-04-02 19:17] LABS: ALB/GLOB RATIO 1.2 (1.0-2.1); ALBUMIN 4.8 g/dL (3.5-5.0); ALT/SGPT 24 U/L (9-52); AST/SGOT 30 U/L (14-36); BLOOD UREA NITROGEN 10 mg/dl (7-17); CALCIUM 9.7 mg/dL (8.4-10.2); GFR NON-AFRICAN AMERICAN > 60; LIPASE 80 U/L (23-300)
[2018-04-02] MEDS ORDERED: Potassium Chloride 20 mEq ER Tab PO STA (19:19)
[2018-04-02 19:25] LABS: BARBITURATES, UR POSITIVE (NEGATIVE); BENZODIAZEPINES, UR POSITIVE (NEGATIVE); OPIATES, UR POSITIVE (NEGATIVE); PHENCYCLIDINE, UR NEGATIVE (NEGATIVE)
[2018-04-02] MEDS ORDERED: Potassium Chloride 20 mEq ER Tab PO ONE (20:47)
[2018-04-02 21:09] VITALS: RESP 18
[2018-04-02 21:22] VITALS: O2SAT 100
[2018-04-02 21:31] VITALS: BP 122/80; PULSE 78; TEMP 98
--- NOTE | 2018-04-03 13:22 | CT ---
Date of service: 04/02/2018 PROCEDURE: CT Abdomen and Pelvis without intravenous contrast HISTORY: RIGHT flank pain hematuria COMPARISON: 02/27/2018 TECHNIQUE: Without contrast.. Contrast dose: 0 Radiation dose: Total exam DLP = 217.57 mGy-cm. This CT exam was performed using one or more of the following dose reduction techniques: Automated exposure control, adjustment of the mA and/or kV according to patient size, and/or use of iterative reconstruction technique. FINDINGS: LOWER THORAX: Unremarkable. LIVER: Unremarkable. No gross lesion or ductal dilatation. GALLBLADDER AND BILE DUCTS: Unremarkable. PANCREAS: Unremarkable. No gross lesion or ductal dilatation. SPLEEN: Unremarkable. ADRENALS: Unremarkable. No mass. KIDNEYS AND URETERS: Nonobstructing 3 mm mid left renal calculus. No right renal calculus. Right lower pole cortical cyst, 2.3 cm, measuring 8 Hounsfield units. Mid left renal cortical cyst, 3.7 cm, measuring 11 Hounsfield units, also unchanged. No hydronephrosis. VASCULATURE: Unremarkable. No aortic aneurysm. Minimal atherosclerotic calcification of the abdominal aorta. BOWEL: Sigmoid diverticulosis without evidence of diverticulitis. Scattered colonic diverticula elsewhere. No bowel obstruction. APPENDIX: Unremarkable. Normal appendix. PERITONEUM: Unremarkable. No free fluid. No free air. LYMPH NODES: Unremarkable. No enlarged lymph nodes. BLADDER: Unremarkable. REPRODUCTIVE: Normal postmenopausal uterus BONES: No acute fracture. OTHER FINDINGS: None. IMPRESSION: Nonobstructing 3 mm left renal calculus. Bilateral renal cortical cysts. No urinary tract obstruction. No other acute abnormality. The preliminary findings for this examination were reported by [facility] at 8:52 p.m. on 04/02/2018. There is concurrence of this report with the preliminary findings.
== END 2018-04-02 21:30 | disposition home or self-care (01) ==
LOC: H.ER 17:30
DX: R10.9 Unspecified abdominal pain (principal); Z86.59 Personal history of other mental and behavioral disorders; G89.29 Other chronic pain; I10 Essential (primary) hypertension; Z88.5 Allergy status to narcotic agent
CPT/HCPCS: 74176; 80053; 80324; 80345; 80346; 80349; 80353; 80358; 80361; 81003; 83605; 83690; 83992; 85025; 85610; 85730; 87086; 96374; 96375; 99284; J2270; J2765; J7030; J7042

== ENCOUNTER 2018-05-17 15:29 | Inpatient (IN) | payer MEDICAID ==
[2018-05-17 15:34] VITALS: BMI 20.9
[2018-05-17 15:36] VITALS: O2SAT 98
--- NOTE | 2018-05-17 16:21 | ED PDOC ---
HPI: Psych/Substance Abuse Time Seen by Provider: 05/17/18 15:44 Chief Complaint (Nursing): Psychiatric Evaluation Chief Complaint (Provider): Psychiatric Evaluation History Per: Patient History/Exam Limitations: no limitations Additional History Per: Additional Complaint(s): 63 year old female brought into the ED via EMS for psychiatric and medical evaluation. Patient reports that she was at her psychiatrist's office (Charles Hernandez NP) when she became emotional and agitated, prompting therapist call to EMS. Patient was expressing frustration with her chronic abdominal pain, at whic h time her psychiatrist said to her that she should go to the ED, which triggered patient to become emotional and upset. Patient states that she wants to go home. Patient reports having abdominal pain for years, and she reports having 1x episode of vomiting this morning, which is characteristic of this chronic pain. at bedside states that when patient was agitated at the psychiatrist's office, patient had trouble walking and was inconsolable. Patient reports feeling dizzy and anxious at present. Otherwise: (-) fevers, (-) chest pain, (-) shortness of breath, (-) diarrhea, (-) rashes, (-) sick contacts, (-) recent travel, (-) headaches, (-) numbness, (-) weakness, (-) vision changes, (- ) syncope, (-) urinary symptoms. Of note: Patient was emotionally distraught upon arrival to ED. Patient denies SI, HI, A/V hallucinations. PMD: Ken Lam MD Psychiatrist: Charles Hernandez NP Past Medical History Reviewed: Historical Data, Nursing Documentation, Vital Signs Vital Signs: Last Vital Signs Temp 98.4 F 05/17/18 15:35 Pulse 102 H 05/17/18 15:35 Resp 16 05/17/18 15:35 BP 166/110 H 05/17/18 15:35 Pulse Ox 98 05/17/18 15:35 TASHA Report Viewed: Yes - Medical History PMH: Anxiety, Arthritis, Depression, Diverticulitis, Gastrointestinal Ulcer, Hiatal Hernia, HTN, Hypercholesterolemia, Hypothyroidism, Migraine - Surgical History Surgical History: Hernia Repair Other surgeries: tubal ligation - Family History Family History: States: Hypertension - Social History Ex-Smoker (has not smoked in the last 12 months): Yes Alcohol: None Drugs: Denies - Home Medications Home Medications: Ambulatory Orders Medication Instructions Recorded RX: Metoprolol Tartrate 25 mg PO DAILY 12/16/16 RX: NIFEdipine ER [Procardia XL] [address] 09/13/17 RX: Dicyclomine [Bentyl] 10 mg PO TID #15 cap 02/27/18 RX: Famotidine [Pepcid] 40 mg PO DAILY PRN #30 tab 04/02/18 Mirtazapine [Remeron] 7.5 mg PO HS #30 tab 05/18/18 RX: Acetaminophen/Butalbital/Caf 1 tab PO Q6 PRN tab 05/19/18 [Fioricet] RX: Atorvastatin [Lipitor] 40 mg PO DAILY #30 tab 05/19/18 RX: Levothyroxine [Synthroid] 100 mcg PO DAILY@0630 #30 tab 05/19/18 RX: Mag&Al/Simet/Diphen/Lido 10 ml PO BID kit 05/19/18 [First Magic Mouthwash] - Allergies Allergies/Adverse Reactions: Allergies Allergy/AdvReac Type Severity Reaction Status Date / Time diphenhydramine Allergy RASH Verified 05/17/18 15:34 [From Benadryl] esomeprazole [From Nexium] Allergy PAIN Verified 05/17/18 15:34 ibuprofen Allergy PAIN Verified 05/17/18 15:34 ketorolac tromethamine Allergy PAIN Verified 05/17/18 15:34 [From Toradol] oxycodone HCl [From Percocet] Allergy PAIN Verified 05/17/18 15:34 Review of Systems ROS Statement: Except As Marked, All Systems Reviewed And Found Negative Constitutional: Negative for: Fever Eyes: Negative for: Vision Change Cardiovascular: Negative for: Chest Pain Respiratory: Negative for: Shortness of Breath Gastrointestinal: Positive for: Vomiting, Abdominal Pain. Negative for: Diarrhea Skin: Negative for: Rash Neurological: Positive for: Dizziness. Negative for: Weakness, Numbness, Headache, Other (syncope) Psych: Positive for: Anxiety Physical Exam - Reviewed Nursing Documentation Reviewed: Yes Vital Signs Reviewed: Yes - Physical Exam Comments: GENERAL APPEARANCE: Patient is awake, alert, oriented x 3; emotionally distraught, tearful, anxious appearing. SKIN: Warm, dry; (-) cyanosis ENMT: Mucous membranes moist. Airway patent: (-) stridor. NECK: Supple, FROM HEART AND CARDIOVASCULAR: (-) irregularity CHEST AND RESPIRATORY: (-) rales, (-) rhonchi, (-) wheezes; breath sounds equal. Respirations nonlabored. ABDOMEN: Soft, (-) distention, (-) tenderness, (-) guarding. NEURO AND PSYCH: Mental status as above. Speech is clear. 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 Pupils equal and reactive; EOMI and painless; (-) facial asymmetry, (-) facial numbness; tongue and uvula midline. Strength symmetric. - Laboratory Results Result Diagrams: 05/18/18 05:35 05/18/18 05:35 - ECG ECG: Positive for: Interpreted By Me, Viewed By Me ECG Rhythm: Positive for: Sinus Rhythm Interpretation Of ECG: occasional PVC QTC is 413 Rate: 92 O2 Sat by Pulse Oximetry: 98 (RA) Pulse Ox Interpretation: Normal - Radiology X-Ray: Viewed By Me, Read By Radiologist (see MDM note) - CT Scan/US CT head w/o contrast Other Rad Studies (CT/US): Read By Radiologist, Radiology Report Reviewed (see MDM note) Medical Decision Making Medical Decision Makin:45 Clinical impression: 63 year old female in the ED for a psychiatric evaluation; dizziness. Initial plan: * CT head w/o contrast * XRay chest 1 view * EKG * crisis evaluation * alcohol serum * CMP * drug screen urinary * lactic acid * lipase * troponin i * CBC with differential * PT and PTT * urinalysis * xanax 0.5 mg PO once * zofran ODT 4 mg PO * reevaluation 17:00 XRay chest read and reviewed by radiologist FINDINGS: LUNGS: No active pulmonary disease. PLEURA: No significant pleural effusion identified, no pneumothorax apparent. CARDIOVASCULAR: No aortic atherosclerotic calcification present. Normal cardiac size. No pulmonary vascular congestion. OSSEOUS STRUCTURES: No significant abnormalities. VISUALIZED UPPER ABDOMEN: Normal. OTHER FINDINGS: None. IMPRESSION: No interval acute cardiopulmonary disease appreciated. 17:20 Upon reevaluation, patient reports continued abdominal pain. Tylenol 650 mg PO ordered however patient refused. 17:30 CT head read and reviewed by radiologist FINDINGS: HEMORRHAGE: No acute parenchymal, subarachnoid nor extra-axial hemorrhage. BRAIN: No mass effect or edema. No significant chronic microvascular ischemic changes. Mild generalized volume loss. VENTRICLES: No obstructive hydrocephalus. CALVARIUM: Unremarkable. PARANASAL SINUSES: Unremarkable as visualized. No significant inflammatory changes. MASTOID AIR CELLS: Unremarkable as visualized. No inflammatory changes. OTHER FINDINGS: None. IMPRESSION: No acute intracranial hemorrhage. Mild generalized volume loss. 17:30 Labs reviewed: CBC unremarkable. Lactic acid within normal limits. Urinalysis shows hematuria, but no evidence of UTI. COAG profile unremarkable. Urinary tox screen positive for barbituates and benzodiazepines. Patient medically cleared for crisis evaluation. 1839 Per crisis evaluation, patient to be admitted for major depressive disorder per Dr Cordero. Patient agreeable to admission at this time. Patient requesting Fioricet for her headache. Fioricet PO ordered. ---- Scribe Attestation: Documented byKaryn Hanson, acting as a scribe for Karyn Carter Provider Scribe Attestation: All medical record entries made by the Scribe were at my direction and personall y dictated by me. I have reviewed the chart and agree that the record accurately reflects my personal performance of the history, physical exam, medical decision making, and the department course for this patient. I have also personally directed, reviewed, and agree with the discharge instructions and disposition. Disposition - Clinical Impression Clinical Impression: Chronic abdominal pain, Dizziness, Major depressive disorder, Headache - Patient ED Disposition Is Patient to be Admitted: Yes Counseled Patient/Family Regarding: Studies Performed, Diagnosis - Disposition Disposition Time: 18:40 Condition: STABLE - Pt Status Changed To: Hospital Disposition Of: Inpatient - Admit Certification Admit to Inpatient:: After my assessment, the patient will require hospitalization for at least two midnights. This is because of the severity of symptoms shown, intensity of services needed, and/or the medical risk in this patient being treated as an outpatient. - POA Present On Arrival: None Results - Diagnostic Imaging Results Radiology Results Chest X-Ray 05/17/18 16:00 IMPRESSION: No interval acute cardiopulmonary disease appreciated. Head CT 05/17/18 16:00 IMPRESSION: No acute intracranial hemorrhage. Mild generalized volume loss. - Lab Results Lab Results: 05/17/18 05/17/18 05/17/18 16:43 16:43 16:43 WBC RBC Hgb Hct MCV MCH MCHC RDW Plt Count MPV Neut % (Auto) Lymph % (Auto) [place] % (Auto) Eos % (Auto) Baso % (Auto) Neut # (Auto) Lymph # (Auto) [place] # (Auto) Eos # (Auto) Baso # (Auto) PT 11.4 INR 1.0 APTT 29.4 POC Glucose (mg/dL) Lactic Acid 1.1 Urine Color Straw Urine Clarity Clear Urine pH 6.0 Ur Specific [place] 1.011 Urine Protein Negative Urine Glucose (UA) Neg Urine Ketones Negative Urine Blood Moderate Urine Nitrate Negative Urine Bilirubin Negative Urine Urobilinogen 0.2-1.0 Ur Leukocyte Esterase Neg Urine RBC (Auto) 5 H Urine Microscopic WBC < 1 Ur Squamous Epith Cells 1 Urine Bacteria Rare Urine Opiates Screen Urine Methadone Screen Ur Barbiturates Screen Ur Phencyclidine Scrn Ur Amphetamines Screen U Benzodiazepines Scrn U Oth Cocaine Metabols U Cannabinoids Screen 05/17/18 05/17/18 05/17/18 16:43 16:13 15:40 WBC 6.2 RBC 4.17 Hgb 13.3 Hct 40.1 MCV 96.3 MCH 32.0 H MCHC 33.3 RDW 14.7 H Plt Count 298 MPV 7.4 Neut % (Auto) 55.3 Lymph % (Auto) 36.5 [place] % (Auto) 6.7 Eos % (Auto) 0.5 Baso % (Auto) 1.0 Neut # (Auto) 3.4 Lymph # (Auto) 2.3 [place] # (Auto) 0.4 Eos # (Auto) 0.0 Baso # (Auto) 0.1 PT INR APTT POC Glucose (mg/dL) 98 Lactic Acid Urine Color Urine Clarity Urine pH Ur Specific [place] Urine Protein Urine Glucose (UA) Urine Ketones Urine Blood Urine Nitrate Urine Bilirubin Urine Urobilinogen Ur Leukocyte Esterase Urine RBC (Auto) Urine Microscopic WBC Ur Squamous Epith Cells Urine Bacteria Urine Opiates Screen Negative Urine Methadone Screen Negative Ur Barbiturates Screen Positive H Ur Phencyclidine Scrn Negative Ur Amphetamines Screen Negative U Benzodiazepines Scrn Positive U Oth Cocaine Metabols Negative U Cannabinoids Screen Negative
[2018-05-17 16:29] LABS: BASO # 0.1 K/uL (0.0-0.2); EOS % 0.5 % (0.0-4.0); HEMOGLOBIN 13.3 g/dL (12.0-16.0); LYMPH # 2.3 K/uL (1.0-4.3); LYMPH % 36.5 % (20.0-40.0); MEAN CELL VOLUME 96.3 fl (81.0-99.0); MEAN CORPUSCULAR HGB CONC 33.3 g/dL (33.0-37.0); MEAN PLATELET VOLUME 7.4 fl (7.2-11.7); MONO # 0.4 K/uL (0.0-0.8); MONO % 6.7 % (0.0-10.0); NEUT # 3.4 K/uL (1.8-7.0); NEUT % 55.3 % (50.0-75.0); RBC 4.17 Mil/uL (3.80-5.20); RED CELL DISTRIBUTION WIDTH 14.7 % (11.5-14.5); WHITE BLOOD COUNT 6.2 K/uL (4.8-10.8)
[2018-05-17 16:52] LABS: PROTHROMBIN TIME 11.4 Seconds (9.8-13.1)
[2018-05-17 16:55] LABS: PARTIAL THROMBOPLASTIN TIME 29.4 Seconds (25.6-37.1); SQUAMOUS EPITHIAL 1 /hpf (0-5); URINE BACTERIA RARE (<OCC); URINE BILIRUBIN NEGATIVE (NEGATIVE); URINE BLOOD MODERATE (NEGATIVE); URINE CLARITY CLEAR (Clear); URINE COLOR STRAW (YELLOW); URINE GLUCOSE (UA) NEG (NEGATIVE); URINE LEUKOCYTE ESTERASE NEG Leu/uL (Negative); URINE PROTEIN NEGATIVE (NEGATIVE); URINE UROBILINOGEN 0.2-1.0 mg/dL (0.2-1.0)
--- NOTE | 2018-05-17 17:05 | RAD ---
Date of service: 05/17/2018 HISTORY: psych admit COMPARISON: None available. FINDINGS: LUNGS: No active pulmonary disease. PLEURA: No significant pleural effusion identified, no pneumothorax apparent. CARDIOVASCULAR: No aortic atherosclerotic calcification present. Normal cardiac size. No pulmonary vascular congestion. OSSEOUS STRUCTURES: No significant abnormalities. VISUALIZED UPPER ABDOMEN: Normal. OTHER FINDINGS: None. IMPRESSION: No interval acute cardiopulmonary disease appreciated.
--- NOTE | 2018-05-17 17:32 | CT ---
Date of service: 05/17/2018 PROCEDURE: CT HEAD WITHOUT CONTRAST. HISTORY: Dizziness COMPARISON: Comparison made with prior CT scan of the brain 07/08/2016.. TECHNIQUE: Axial computed tomography images were obtained through the head/brain without intravenous contrast. Radiation dose: Total exam DLP = 593.03 mGy-cm. This CT exam was performed using one or more of the following dose reduction techniques: Automated exposure control, adjustment of the mA and/or kV according to patient size, and/or use of iterative reconstruction technique. FINDINGS: HEMORRHAGE: No acute parenchymal, subarachnoid nor extra-axial hemorrhage. BRAIN: No mass effect or edema. No significant chronic microvascular ischemic changes. Mild generalized volume loss. VENTRICLES: No obstructive hydrocephalus. CALVARIUM: Unremarkable. PARANASAL SINUSES: Unremarkable as visualized. No significant inflammatory changes. MASTOID AIR CELLS: Unremarkable as visualized. No inflammatory changes. OTHER FINDINGS: None. IMPRESSION: No acute intracranial hemorrhage. Mild generalized volume loss.
[2018-05-17 17:37] LABS: BARBITURATES, UR POSITIVE (NEGATIVE); BENZODIAZEPINES, UR POSITIVE (NEGATIVE); OPIATES, UR NEGATIVE (NEGATIVE); PHENCYCLIDINE, UR NEGATIVE (NEGATIVE)
[2018-05-17] MEDS ORDERED: Apap-Butalbital-Caffeine 325-50-40mg Tab PO STA (18:45)
[2018-05-17] MEDS ORDERED: Apap-Butalbital-Caffeine 325-50-40mg Tab ONE (19:07)
[2018-05-17 19:34] LABS: BLOOD UREA NITROGEN 13 mg/dl (7-17); CALCIUM 9.4 mg/dL (8.4-10.2); GFR NON-AFRICAN AMERICAN > 60
[2018-05-17 19:35] LABS: ALB/GLOB RATIO 1.1 (1.0-2.1); ALBUMIN 4.7 g/dL (3.5-5.0); ALT/SGPT 20 U/L (9-52); AST/SGOT 35 U/L (14-36)
[2018-05-17 19:46] LABS: LIPASE 120 U/L (23-300)
[2018-05-17] MEDS ORDERED: Apap-Butalbital-Caffeine 325-50-40mg Tab PO PRN ×2 (21:25→21:39)
[2018-05-17] MEDS ORDERED: Nasal Spray(Ocean spray) NAS PRN (21:41)
--- NOTE | 2018-05-17 22:19 | PCM.BM ---
<Donaldo Mora T - Last Filed: 05/17/18 22:17> Treatment Plan Problems - Problems identified on initial assessmt Hopelessness/Helplessness Date Initiated: 05/17/18 Time Initiated: 22:18 Assessment reference: NA Status: Active Altered Sleep Patterns Date Initiated: 05/17/18 Time Initiated: 22:18 Assessment reference: NA Status: Active Less than Optimal Nutrition Date Initiated: 05/17/18 Time Initiated: 22:19 Assessment reference: NA Status: Active Treatment assets and liabiliti Patient Assests: good support system, negotiates basic needs Patient Liabilities: physical pain, medical problems (migraine) - Milieu Protocol Maintain good personal hygiene: daily Encourage regular showers, daily Remind patient to perform daily oral care, daily Assist patient to perform ADL's Conduct patient checks and document Observation sheet: Q15 minutes Maintain personal safety: every shift Educate patient to report safety concerns to staff, every shift Monitor environment for contraband/sharps Medication safety: Monitor for expected outcome, potential side effects: every shift, Assess barriers to learning: every shift, Assess readiness for medication education: every shift <Rosenda Cordero - Last Filed: 05/18/18 10:47> - Diagnosis (1) Major depressive disorder Status: Chronic Interventions: Medication management, Individual and group therapy, Psychoeducation 05/18/18 10:47 (2) Generalized anxiety disorder Status: Acute Interventions: Medication management, Individual and group therapy, Psychoeducation 05/18/18 10:47 <Justine Matute M - Last Filed: 05/18/18 12:21> Family Contact Family involvement: Family/SO is involved Family contact: Patient agrees to contact, Family has been contacted by patient, Telephone contact initiated by staff Family contact name: Noemy Gandhi - daughter Family contacted how many times per week?: 1 Family contact comment: [phone] - Outside Agency [facility] Care involvment: Information-sharing Agency contact name: Charles Hernandez APN Agency contact number: [phone] - Goals for Treatment Patient goals for treatment: Pt is will improve overall mood. Pt will improve sleep pattern. Pt will be free of suicide ideation/thoughts. 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 Discharge/Continuing Care - Education Needs Education Needs: Family Medication, Family Diagnosis/Disease Process, Family Coping Skills, Family Community resources, Family Activities of Daily Living, Family Health Practices/Safety, Family Personal Hygiene/Grooming, Patient Medication, Patient Diagnosis/Disease Process, Patient Coping Skills, Patient Community resources, Patient Activities of Daily Living, Patient Health Practices/Safety, Patient Personal Hygiene/Grooming - Discharge Discharge Criteria: Tolerates medication w/o severe side effects, Normal sleep pattern, Ability to care for self, Reduction of target symptoms Discharge to:: Home, With Family - Additional Comments 05/18/18 11:55 Pt seen and discussed in team meeting. Reason for admission reviewed and discussed. Pt reported she was referred to the ED by OPERATING TABLE ASSEMBLER, Charles Hernandez. Pt reported that she and OPERATING TABLE ASSEMBLER were "fooling around" and she said "I'm tired with all this problem and living." Pt denied suicide ideation and thoughts. Pt denied suicide attempts. Pt denied feeling depressed. Pt reported feeling anxious "because i'm here." Pt denied banging her head. Pt denied AVH. Pt denied any paranoia. Pt requesting to be discharged from the facility. Pt reported that she was "tricked" by her daughter to sign in. Pt reported she is illiterate and was not aware of the paperwork that she was signing. Pt reported that she does not wish to remain in the hospital as she does not need to be admitted. Pt reported that she has been talking to OPERATING TABLE ASSEMBLER about tapering her medications. Dr. Cordero reviewed pt's medication at length and psycho-education provided. informed pt that she will taper Xanax 0.5mg to BID instead of TIB, decrease Ambien 10mg to 5mg and will start pt on Remeorn 7.5mg HS. Pt verbalized agreement. Pt provided with risks and benefits of medications and reasoning for tapering them off. Pt verbalized understanding and agreement with same. Pt's medical and social issues reviewed. Pt reported she resides with and has 4 children. Pt provided sports book writer with written consent to contact her daughter, Noemy ([phone]). Pt provided sports book writer with verbal authorization to contact her , Kenji ([phone]). 48 Hour notice of intent to leave reviewed and discussed with pt, pt signed notice on 05/18/2018 at 1025am. SW to continue to follow case. - Treatment Team Participation Discussed with Family/SO: No
[2018-05-18] MEDS ORDERED: guaiFENesin-DM 600-30 mg ER Tab PO ONE (04:00)
[2018-05-18 06:24] LABS: HEMOGLOBIN 13.9 g/dL (12.0-16.0); MEAN CORPUSCULAR HEMOGLOBIN 31.8 pg (27.0-31.0); MEAN CORPUSCULAR HGB CONC 33.1 g/dL (33.0-37.0); RBC 4.38 Mil/uL (3.80-5.20); RED CELL DISTRIBUTION WIDTH 14.3 % (11.5-14.5)
--- NOTE | 2018-05-18 06:47 | CARD ---
APPROVED REPORT Date of service: 05/17/2018 EKG Measurement Heart [id number] <Conclusion> Sinus rhythm with occasional premature ventricular complexes Nonspecific T wave abnormality Abnormal ECG
[2018-05-18 07:02] LABS: LDL CHOLESTEROL 225 mg/dL (0-129)
[2018-05-18 07:05] LABS: ALB/GLOB RATIO 1.2 (1.0-2.1); ALBUMIN 5.1 g/dL (3.5-5.0); ALT/SGPT 28 U/L (9-52); AST/SGOT 23 U/L (14-36); BLOOD UREA NITROGEN 13 mg/dl (7-17); GFR NON-AFRICAN AMERICAN > 60; HDL CHOLESTEROL 105 MG/DL (30-70)
[2018-05-18 07:06] LABS: T4 4.28 ug/dl (5.5-11.0)
[2018-05-18 07:24] LABS: FERRITIN 23.5 ng/Ml (11.1-264.0)
[2018-05-18] MEDS ORDERED: Levothyroxine 88 MCG TAB PO SCH (09:00)
[2018-05-18] MEDS: NIFEdipine 30 mg ER Tab PO SCH (09:10)
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
--- NOTE | 2018-05-18 09:54 | PCM.PSYCH ---
Initial Psychiatric Evaluation - Initial Psychiatric Evaluation Type of Admission: Voluntary Legal Status: Capacity Chief Complaint (in patient's own words): "I'm so anxious." Patient's Reaction to Hospitalization: HPI: 63 yo female w/ h/o depression and anxiety, sent by her primary psychiatric provider, Charles Hernandez LOAN EXPEDITOR, for worsening depression, mood lability, increased crying, increased anxiety, helplessness/hopelessness and sleep/appetite disturbances. Patient reports that she has been taking Xanax for over 40 years. Psychoeducation provided on the dangers of middle or intermediate school principal benzodiazepine use and patient informed that she would benefit from tapering the medication. She reports that she does not want to stay in the hospital and submitted a 48 hr letter requesting to be discharged. She denies AH/VH/paranoia/SI/HI. PMHx: Hypothyroidism, Migraines, HLD, HTN PPHx: Outpatient psychiatric treatment with Chrales Hernandez; currently prescribed Xanax 0.5 mg PO TID and Ambien 10 mg PO HS ALL: Benadryl, Esomeprazole, Ibuprofen, Ketorolac, Oxycodone SHx: Lives w/ , denies drugs/etoh/cig use Current Medications: Active Medications Generic Name Dose Route Start Last Admin Trade Name Freq PRN Reason Stop Dose Admin Acetaminophen/Butalbital/Caffeine 1 tab 05/17/18 21:39 05/18/18 01:17 Fioricet PO 1 tab Q6 PRN Administration Headache Atorvastatin Calcium 40 mg 05/19/18 09:00 Lipitor PO DAILY CORNELL Dicyclomine HCl 10 mg 05/18/18 09:00 05/18/18 09:08 Bentyl PO 10 mg TID CORNELL Administration Famotidine 40 mg 05/17/18 21:41 Pepcid PO DAILY PRN reflux Levothyroxine Sodium 100 mcg 05/19/18 06:30 Synthroid PO DAILY@0630 [facility]NE[facility] Lorazepam 0.5 mg 05/17/18 21:15 Ativan PO 05/31/18 21:16 HS PRN Insomnia Lorazepam 0.5 mg 05/17/18 21:15 05/18/18 08:10 Ativan PO 05/31/18 21:16 0.5 mg Q6 PRN Administration Anixety/Agitation Metoprolol Tartrate 25 mg 05/18/18 09:00 05/18/18 09:09 Lopressor PO 25 mg DAILY CORNELL Administration Nifedipine 30 mg 05/18/18 09:00 05/18/18 09:10 Procardia Xl PO 30 mg DAILY CORNELL Administration Ondansetron HCl 4 mg 05/17/18 21:39 Zofran Odt PO Q6 PRN Nausea/Vomiting Sodium Chloride 1 sprays 05/17/18 21:41 05/17/18 22:30 [place] Nasal [place] ADILSON 1 spray Q4 PRN Administration Nasal congestion Zolpidem Tartrate 5 mg 05/17/18 21:23 05/17/18 22:14 Ambien PO 5 mg HS PRN Administration Sleep Past Psychiatric History - Past Psychiatric History Pertinent Medical Hx (Current Medical&Sleep Prob, Allergies): Allergies Allergy/AdvReac Type Severity Reaction Status Date / Time diphenhydramine Allergy RASH Verified 05/17/18 15:34 [From Benadryl] esomeprazole [From Nexium] Allergy PAIN Verified 05/17/18 15:34 ibuprofen Allergy PAIN Verified 05/17/18 15:34 ketorolac tromethamine Allergy PAIN Verified 05/17/18 15:34 [From Toradol] oxycodone HCl [From Percocet] Allergy PAIN Verified 05/17/18 15:34 Alprazolam [Xanax] 0.5 mg PO HS 12/16/16 Metoprolol Tartrate 25 mg PO DAILY 12/16/16 Levothyroxine [Synthroid] 88 mcg PO DAILY 09/10/17 Zolpidem [Ambien] 10 mg PO DAILY 09/10/17 NIFEdipine ER [Procardia XL] [address] 09/13/17 Atorvastatin [Lipitor] 20 mg PO DAILY #30 tab 09/14/17 Dicyclomine [Dicyclomine HCl] 10 mg PO TID #15 cap 02/27/18 Famotidine [Pepcid] 40 mg PO DAILY PRN #30 tab 04/02/18 Review of Systems - Psychiatric Psychiatric: As Per HPI, Abnormal Sleep Pattern, Anxiety, Change in Appetite, Depression, Difficulty Concentrating, Hopelessness, Irritability, Mood Swings Mental Status Examination - Personal Presentation Personal Presentation: Looks stated age - Affect Affect: Constricted - Motor Activity Motor Activity: Calm - Reliability in Providing Information Reliability in Providing Information: Fair - Speech Speech: Organized, Coherent - Mood Mood: Anxious - Formal Thought Process Formal Thought Process: No Impairment - Hallucinations/Delusions Additional comments: Denies AH/VH/paranoia/delusions - Obsessions/Compulsions Obsessions: No Compulsions: No - Cognitive Functions Orientation: Person, Place, Situation, Time Sensorium: Alert Attention/Concentration: Attentive Judgement: Intact, as evidence by: Good judgement Memory: Recent intact, as evidence by: Ability to recall events of the day, Remote intact, as evidenced by: Abilit to recall sig. life events, Remote intact, as evidenced by: Ability to recall historical events - Risk Risk: Diminished functioning - Strength & Assets Inventory Strength & Assets Inventory: Family support, Cooperative DSM 5 DX - DSM 5 DSM 5 Diagnosis: Major Depressive Disorder; Generalized Anxiety Disorder - Recommended/Plan of Treatment Treatment Recommendations and Plan of Treatment: Major Depressive Disorder; Generalized Anxiety Disorder -Admit to psychiatry unit -Obtain collateral history -Individual and group therapy -Psychoeducation -Medicine consult -Xanax PRN; patient informed that she would benefit from tapering and eventually stopping this medication -Start Remeron 7.5 mg PO HS -Patient submitted a 48 hour letter requesting to be discharged; will observe overnight for safety w/ possible discharge tomorrow - Smoking Cessation Smoking Cessation Initiated: No Reason for not providing: Not indicated
[2018-05-18 15:09] LABS: FOLATE 17.1 ng/mL
[2018-05-18 15:18] VITALS: RESP 19
[2018-05-18] MEDS: Mag&Al/Simet/Diphen/Lido 237 ML KIT PO SCH (17:53)
[2018-05-18] MEDS ORDERED: Alum-Mag Hydrox-Simethicone Susp (30 mL) PO PRN (21:35)
[2018-05-18] MEDS ORDERED: Magnesium Hydroxide Susp 30 ml UD PO PRN (21:35)
[2018-05-19 06:06] VITALS: BP 125/79; TEMP 98.1
[2018-05-19] MEDS ORDERED: Levothyroxine 100 MCG TAB PO SCH (06:30)
[2018-05-19] MEDS: Mag&Al/Simet/Diphen/Lido 237 ML KIT PO SCH (08:35)
[2018-05-19] MEDS: NIFEdipine 30 mg ER Tab PO SCH (08:37)
--- NOTE | 2018-05-19 09:20 | PCM.PYCHDC ---
Mental Status Examination - Mental Status Examination Orientation: Person, Place, Situation, Time Memory: Intact Mood: Neutral Affect: Broad Speech: Appropriate Attention: WNL Concentration: WNL Association: WNL Fund of Knowledge: WNL Formal Thought Process: No Impairment Description of patient's judgement and insight: Fair I/J Psychotic Thoughts and Behaviors: No AH/VH/paranoia/delusions Suicidal Ideation: No Current Homicidal Ideation?: No Discharge Summary - Discharge Note Reason for Hospitalization: HPI: 63 yo female w/ h/o depression and anxiety, sent by her primary psychiatric provider, Charles Hernandez PAY PER CLICK STRATEGIST, for worsening depression, mood lability, increased crying, increased anxiety, helplessness/hopelessness and sleep/appetite disturbances. Patient reports that she has been taking Xanax for over 40 years. Psychoeducation provided on the dangers of alf benzodiazepine use and patient informed that she would benefit from tapering the medication. She reports that she does not want to stay in the hospital and submitted a 48 hr letter requesting to be discharged. She denies AH/VH/paranoia/SI/HI. PMHx: Hypothyroidism, Migraines, HLD, HTN PPHx: Outpatient psychiatric treatment with Charles Hernandez; currently prescribed Xanax 0.5 mg PO TID and Ambien 10 mg PO HS ALL: Benadryl, Esomeprazole, Ibuprofen, Ketorolac, Oxycodone SHx: Lives w/ , denies drugs/etoh/cig use Laboratory Data: Abnormal Lab Results 05/18/18 05/18/18 05/18/18 05:35 05:35 05:35 Hemoglobin A1c 5.6 Cholesterol 392 H Vitamin B12 568 Folate 17.1 RPR Nonreactive Consultations:: List each consultation separately and include: 1. Reason for request. 2. Findings. 3. Follow-up Consultations: Medicine consult Summary of Hospital Course include:: 1. Description of specific treatment plan utilized for patients during their course of treatmen. 2. Summarize the time- course for resolution of acute symptoms and/or regressed behaviors. 3. Describe issues identified and worked on during hospitalization. 4. Describe medication utilized. 5. Describe medical problems identified and treated. 6. Reassessment of suicide risk Summary of Hospital Course: Patient was admitted to the hospital. Individual and group therapy were provided. Patient was started on Remeron 7.5 mg PO HS. Psychoeducation provided to the patient that she should taper and stop Xanax, under the supervision of her primary psychiatric provider. Patient also informed that it is unsafe for women to take more than 5 mg of Ambien and patient advised not to take 10 mg and that this medication should also be discontinued. Patient submitted a 48 hr letter requesting to be discharged from the hospital and does not meet criteria for involuntary psychiatric commitment at this time. She denies acute depression/anxiety/AH/VH/paranoia/delusions/SI/HI and will be discharged from the hospital with continued outpatient follow-up. - Diagnosis (1) Major depressive disorder Current Visit: Yes Status: Chronic (2) Generalized anxiety disorder Current Visit: Yes Status: Chronic - Final Diagnosis (DSM 5) Condition upon Discharge: STABLE DSM 5: Major Depressive Disorder; Generalized Anxiety Disorder; r/o Benzodiazepine Use Disorder Disposition: HOME/ ROUTINE Follow-up Treatment Plan: Major Depressive Disorder; Generalized Anxiety Disorder; r/o Benzodiazepine Use Disorder -Individual and group therapy -Psychoeducation -Medicine consult appreciated; Lipitor and Levothyroxine doses modified -Xanax PRN; patient informed that she would benefit from tapering and stopping this medication under the supervision of her outpatient provider -Continue Remeron 7.5 mg PO HS -Patient submitted a 48 hour letter requesting to be discharged and will be discharged today as she does not meet criteria for involuntary psychiatric commitment Prescriptions/Medication Reconciliation: Atorvastatin [Lipitor] 40 mg PO DAILY #30 tab Levothyroxine [Synthroid] 100 mcg PO DAILY@0630 #30 tab Mirtazapine [Remeron] 7.5 mg PO HS #30 tab - Smoking Cessation Smoking Cessation Medication prescribed: No Reason for not providing: Not indicated - Antipsychotic Medications Pt discharged on 2 or more routine antipsychotic medications: No
[2018-05-20 04:16] VITALS: PULSE 92
== END 2018-05-19 12:15 | disposition home or self-care (01) | DRG 426 ==
LOC: H.ER 15:29 → H.ERHOLD 19:40 → H.STEP 21:07
PROVIDERS: ADMIT Psychiatry & Neurology Psychiatry; ATTEND Psychiatry & Neurology Psychiatry
PROC: GZHZZZZ Group Psychotherapy (ICD-10-PCS; principal; 2018-05-17)
PROC: GZ58ZZZ Individual Psychotherapy, Cognitive-Behavioral (ICD-10-PCS; 2018-05-17)
DX: F32.9 Major depressive disorder, single episode, unspecified (principal); F41.1 Generalized anxiety disorder; G89.29 Other chronic pain; E03.9 Hypothyroidism, unspecified; I10 Essential (primary) hypertension; E78.5 Hyperlipidemia, unspecified; G43.909 Migraine, unspecified, not intractable, without status migrainosus; E78.00 Pure hypercholesterolemia, unspecified; Z87.891 Personal history of nicotine dependence; Z87.11 Personal history of peptic ulcer disease